=== PATIENT | female | born 1940 | race Caucasian/White ===

== ENCOUNTER → 2017-02-20 | Outpatient (CLI) | payer MEDICARE ==
--- NOTE | 2017-02-20 08:40 | MM ---
Reason for exam: screening (asymptomatic). Baseline mammogram. History: Patient is postmenopausal. Physical Findings: Nurse did not find any significant physical abnormalities on exam. MG 3D Screening Mammo W/Cad Bilateral CC and MLO view(s) were taken. There are scattered fibroglandular densities. There is no discrete abnormality. These results were verbally communicated with the patient and result sheet given to the patient on 02/20/17. ASSESSMENT: Negative, BI-RAD 1 RECOMMENDATION: Routine screening mammogram of both breasts in 1 year.
--- NOTE | 2017-02-20 15:52 | BD ---
EXAMINATION TYPE: MG DEXA axial skeleton. DATE OF EXAM: 02/20/2017 8:21 AM COMPARISON: NONE CLINICAL HISTORY: Z78.0 POST MENOPAUSAL SKELETON Height: 65.3 Weight: 193 FRAX RISK QUESTIONS: Alcohol (3 or more units per day): NO Family History (Parent hip fracture): NO Glucocorticoids (More than 3mos): NO (Ex: prednisone, prednisolone, methylprednisolone, dexamethasone, and hydrocortisone). History of Fracture in Adulthood: NO Secondary Osteoporosis: NO 1. Type 1 Diabetes: NO 2. Hyperthyroidism: NO 3. Menopause before 45: YES 4. Malnutrition: NO 5. Chronic liver disease: NO Rheumatoid Arthritis: NO Current Tobacco Use: NO RISK FACTORS HISTORY OF: Drink Alcohol: RARELY Active: YES, LATELY Diet low in dairy products/other sources of calcium: NO Postmenopausal woman: TOTAL HYST AT AGE 28 Take estrogen and/or progesterone medications: IN PAST ONLY FOR A SHORT TIME Adrenal Insufficiency: NO MEDICATIONS: Additional Medications: BP MEDS, MULTIVITAMIN, STATINS FOR CHOLESTEROL Additional History: EXAM MEASUREMENTS: Bone mineral densitometry was performed using the [employer] System. Bone mineral density as measured about the Lumbar spine is: ----- L1-L4(G/cm2): 1.119 T Score Values are as follows: ----- L1: -1.7 ----- L2: -1.2 ----- L3: 0.0 ----- L4: 0.3 ----- L1-L4: -0.5 Bone mineral density THIS IS HER FIRST BONE DENSITY.....BASELINE Bone mineral density about the R hip (g/cm2): 0.781 Bone mineral density about the L hip (g/cm2): 0.807 T Score values are as follows: -----R Neck: -1.6 -----L Neck: -1.9 -----R Total: -1.8 -----L Total: -1.6 Bone mineral density BASELINE STUDY FRAX %'S 14.0% CHANCE OF MAJOR OSTEOPOROTIC FX AND 3.7% CHANCE OF HIP FX....PROBABILITY OF FX IN 10 YRS TIME IMPRESSION: Osteopenia (T Score between -2.5 and -1 as noted by T score values There is slightly increased risk of fracture and the patient may be considered for treatment. Re-Screen 2-5 years. NOTE: T-SCORE=SD OF THE YOUNG ADULT MEAN.
== END | disposition home or self-care (01) ==
LOC: RADMAMWWP 06:56
PROVIDERS: ATTEND Internal Medicine
DX: Z12.31 Encounter for screening mammogram for malignant neoplasm of breast (principal); M85.80 Other specified disorders of bone density and structure, unspecified site; Z78.0 Asymptomatic menopausal state
CPT/HCPCS: 77080; 77063; G0202

== ENCOUNTER → 2019-03-15 | Outpatient (CLI) | payer MEDICARE ==
--- NOTE | 2019-03-15 19:56 | P.STRESS ---
- Stress Test Note Stress Test Results/Findings: Exam Performed: stress echo exercise Exam Date: 03/15/19 Reason for Exam: SOB, HTN Height: 5 ft 7 in Weight: 88.451 kg Protocol: STRESS ECHO Stage: 1 Duration of Exercise: 2:13 Resting Heart Rate: 79 Resting Blood Pressure: 145/69 Maximum Achieved Heart Rate: 129 Maximum Achieved Blood Pressure: 159/70 85% PMHR: 119 100% PMHR: 140 METS: 3.6 Technologist Comment: Stress Test Results/Findings: Baseline heart rate 79 beats a minute, Baseline blood pressure 145/69 mmHg Baseline 12-lead ECG shows sinus rhythm with a left bundle branch block pattern Patient exercised on a Ben protocol for only 2 minutes 13 seconds achieving a peak heart rate of 128 beats a minute normal blood pressure response to exercise. She was short of breath very quickly and TVCs and noted occasionally however with increasing heart rates there was normalization of QRS width and morphology intermittently and recovery left bundle branch block persisted Baseline creatinine condition normal LV systolic function without segmental wall motion abnormalities At peak exercise there was excellent augmentation of eeiu-yhn-[place] telemetry without any wall motion amenities @Recovery region only systolic function Normal Impression very low exercise capacity patient become short of breath very quickly Left bundle branch block morphology at baseline with normalization of QRS intermittently during exercise Occasional PVCs No evidence for stress-induced ischemia at this low workload level
--- NOTE | 2019-03-16 09:31 | ECHOS ---
Stress Test Results/Findings: Exam Performed: stress echo exercise Exam Date: 03/15/19 Reason for Exam: SOB, HTN Height: 5 ft 7 in Weight: 88.451 kg Protocol: STRESS ECHO Stage: 1 Duration of Exercise: 2:13 Resting Heart Rate: 79 Resting Blood Pressure: 145/69 Maximum Achieved Heart Rate: 129 Maximum Achieved Blood Pressure: 159/70 85% PMHR: 119 100% PMHR: 140 METS: 3.6 Technologist Comment: Stress Test Results/Findings: Baseline heart rate 79 beats a minute, Baseline blood pressure 145/69 mmHg Baseline 12-lead ECG shows sinus rhythm with a left bundle branch block pattern Patient exercised on a Ben protocol for only 2 minutes 13 seconds achieving a peak heart rate of 128 beats a minute normal blood pressure response to exercise. She was short of breath very quickly and TVCs and noted occasionally however with increasing heart rates there was normalization of QRS width and morphology intermittently and recovery left bundle branch block persisted Baseline creatinine condition normal LV systolic function without segmental wall motion abnormalities At peak exercise there was excellent augmentation of abne-sny-pgoyppd telemetry without any wall motion amenities @Recovery region only systolic function Normal Impression very low exercise capacity patient become short of breath very quickly Left bundle branch block morphology at baseline with normalization of QRS intermittently during exercise Occasional PVCs No evidence for stress-induced ischemia at this low workload level MTDD
== END | disposition home or self-care (01) ==
LOC: RADNMMAIN 08:46
PROVIDERS: ATTEND Internal Medicine
DX: I44.7 Left bundle-branch block, unspecified (principal); I10 Essential (primary) hypertension
CPT/HCPCS: 93351

== ENCOUNTER → 2020-03-02 | Outpatient (CLI) | payer MEDICARE | END | disposition home or self-care (01) | LOC: LABWHC1 10:04 | PROVIDERS: ATTEND Internal Medicine | DX: U07.1 COVID-19 (principal) | CPT/HCPCS: 36415; 86769 ==

== ENCOUNTER → 2020-08-02 | Outpatient (CLI) | payer MEDICARE ==
--- NOTE | 2020-08-02 09:03 | CT ---
EXAMINATION TYPE: CT chest wo con DATE OF EXAM: 08/02/2020 COMPARISON: None HISTORY: 79-year-old female Solitary pulmonary nodule TECHNIQUE: Contiguous axial scanning of the chest without IV contrast. Coronal and sagittal reconstru ctions performed. CT DLP: 269.4 mGycm Automated exposure control for dose reduction was used. FINDINGS: Heart normal size without pericardial effusion. Minimal LAD coronary calcifications are present. Ectatic ascending aorta 3.9 cm. Mild atherosclerotic arch calcifications with conventional arch vesse l branching anatomy. No thoracic lymphadenopathy by CT size criteria. There is a 1.3 cm pulmonary nodule medial right upper lobe, axial image 14. Tiny 3 mm peripheral right upper lobe pulmonary nodule, axial image 12. Biapical pleural parenchymal scarring. Some strandy scarring or atelectasis in the lower lungs. A 4.1 cm emphysematous cyst/pneumatocele at the left hilum. No consolidation or pleural effusion. Small hiatal hernia. Visualized upper abdomen otherwise shows a partially visualized 7.4 cm cyst of t he left kidney, cholecystectomy clips, and scattered hepatic cysts measuring up to 1.7 cm. There is an indeterminate soft tissue attenuating 1.1 cm lesion of the medial upper to mid pole of th e right kidney which warrants follow-up to exclude an early solid mass. Bones: Mild degenerative disc disease throughout. IMPRESSION: 1. A 1.3 CM RIGHT UPPER LOBE PULMONARY NODULE LOCATED ALONG THE POSTERIOR SEGMENTAL BRANCH OF THE RIG HT UPPER LOBE. APPROPRIATE WORKUP AND MANAGEMENT FOR POTENTIAL EARLY LUNG CANCER. 2. NONSPECIFIC 3 MM PERIPHERAL RIGHT UPPER LOBE PULMONARY NODULE. 3. A 4.1 CM EMPHYSEMATOUS CYST OR PNEUMATOCELE AT THE LEFT HILUM. 4. INDETERMINATE 1.1 CM LESION MEDIAL RIGHT KIDNEY COULD REPRESENT DECOMPENSATED CYST OR SMALL EARLY SOLID MASS. [address] MON[address] FOLLOW-UP CT RECOMMENDED TO REASSESS. A 3 MM RIGHT UPPER LOBE PULMONARY NODULE CA N ALSO BE REASSESSED AT THAT TIME.
== END | disposition home or self-care (01) ==
LOC: RADCTMAIN 06:25
PROVIDERS: ATTEND Internal Medicine
DX: R91.1 Solitary pulmonary nodule (principal)
CPT/HCPCS: 71250

== ENCOUNTER → 2020-08-10 | Outpatient (CLI) | payer MEDICARE ==
--- NOTE | 2020-08-11 17:49 | PE ---
EXAMINATION TYPE: PET CT fusion whole body DATE OF EXAM: 08/10/2020 COMPARISON: CT chest 08/02/2020 Prior PET/CT: None HISTORY: Solitary pulmonary nodule TECHNIQUE: Following the intravenous administration of 13.82 mCi of F-18 FDG, whole body images are performed from the skull base to the midthigh. Images are reviewed on the computer in the coronal, a xial, and sagittal planes. Reconstructed rotating images are created on independent workstation and reviewed on the computer. A localization and attenuation correction CT is performed in conjunction with the PET scan. SCAN: Initial Scan Blood glucose: 93 mg/dL Average Mediastinum SUV: 2.06 Average Liver SUV: 2.80 FINDINGS: NECK: No hypermetabolic activity. THORAX: Redemonstrated 12 x 13 mm round solid pulmonary nodule of the right upper lobe, which does no t demonstrate hypermetabolic activity. Redemonstrated 3 mm pulmonary nodule of the right upper lobe ( 3:60) which is below PET/CT threshold for assessment of metabolic activity. Biapical pleural thickeni ng. Redemonstrated emphysematous bulla at the left hilum. ABDOMEN/PELVIS: No hypermetabolic activity. OSSEOUS STRUCTURES: No hypermetabolic activity. LOCALIZATION CT: No thoracic or abdominal pelvic lymphadenopathy. Mucosal retention cyst versus polyp of the left maxillary sinus. Ectatic ascending thoracic aorta measures up to 3.8 cm. Enlarged pulmon eleni arterial trunk measures up to 3.5 cm and may represent pulmonary arterial hypertension. Small hia brittany hernia. Hepatic cystic lesions which demonstrate no metabolic activity. Status post cholecystecto my. There is a 1.0 cm exophytic indeterminate soft tissue lesion of the right renal upper pole redemo nstrated (3: 1:30) which does not demonstrate hypermetabolic activity. 7.3 cm simple cyst of the left kidney redemonstrated, also does not demonstrate hypermetabolic activity. Colonic diverticulosis. No acute diverticulitis. Degenerative changes of the spine. IMPRESSION: 1. Right upper lobe 13 mm pulmonary nodule demonstrates no metabolic activity. Recommend CT in 3-6 mo nths for stability. 2. Indeterminate 1.0 cm right renal lesion demonstrates no metabolic activity. Findings may represent hemorrhagic/proteinaceous cyst, although solid renal mass not entirely excluded. Right renal lesion can be reassessed with CT at time of pulmonary nodule follow-up.
== END | disposition home or self-care (01) ==
LOC: RADPETMAIN 15:25
PROVIDERS: ATTEND Internal Medicine
DX: R91.1 Solitary pulmonary nodule (principal)
CPT/HCPCS: 78816; A9552

== ENCOUNTER 2023-04-27 17:44 | Inpatient (IN) | payer MEDICARE ==
[2023-04-27] MEDS ORDERED: LIDOCAINE 1% INJ 10MG/ML (20 ML MDV) SQ ONE (18:00)
[2023-04-27 18:23] LABS: Basophils % (A) 0 %; Eosinophils # (A) 0.6 k/uL (0-0.7); Eosinophils % (A) 5 %; HCT 42.9 % (34.0-46.0); HGB 14.4 gm/dL (11.4-16.0); Lymphocytes # (A) 2.2 k/uL (1.0-4.8); Lymphocytes % (A) 21 %; MCH 29.7 pg (25.0-35.0); MCHC 33.5 g/dL (31.0-37.0); MCV 88.6 fL (80.0-100.0); Mean Platelet Volume 8.7; Monocytes # (A) 0.5 k/uL (0-1.0); Monocytes % (A) 5 %; Neutrophils % (A) 67 %; Platelet Count 274 k/uL (150-450); RBC 4.84 m/uL (3.80-5.40); WBC 10.5 k/uL (3.8-10.6)
[2023-04-27] MEDS ORDERED: ETOMIDATE 2 MG/ML 10 ML VIAL IV STA (18:24)
[2023-04-27 18:38] LABS: ALT 24 U/L (4-34); AST 30 U/L (14-36); African American GFR (CKD) 87 (>60 ml/min/1.73 sqM); Albumin 4.5 g/dL (3.5-5.0); Alkaline Phosphatase 123 U/L (38-126); Anion Gap 10 mmol/L; Blood Urea Nitrogen 20 mg/dL (7-17); Calcium 9.4 mg/dL (8.4-10.2); Carbon Dioxide 28 mmol/L (22-30); Chloride 102 mmol/L (98-107); Glucose 100 mg/dL (74-99); Non-African American GFR(CKD) 75 (>60 ml/min/1.73 sqM); Potassium 3.5 mmol/L (3.5-5.1); Sodium 140 mmol/L (137-145); Total Bilirubin 0.9 mg/dL (0.2-1.3); Total Protein 7.5 g/dL (6.3-8.2)
[2023-04-27] MEDS ORDERED: ETOMIDATE 2 MG/ML 10 ML VIAL IVP STA ×2 (19:11→19:19)
[2023-04-27] MEDS ORDERED: ONDANSETRON 4 MG/2 ML VIAL IVP STA (19:27)
[2023-04-27] MEDS ORDERED: HYDROmorphone 0.5 MG/0.5 ML SYRINGE IVP STA (19:28)
--- NOTE | 2023-04-27 20:18 | XR ---
EXAMINATION TYPE: XR chest 1V portable DATE OF EXAM: 04/27/2023 7:36 PM COMPARISON: Chest radiographs from earlier same day. TECHNIQUE: XR chest 1V portable Frontal view of the chest. CLINICAL INDICATION:Female, 82 years old with history of thoravent placement; FINDINGS: Lungs/Pleura: There is no evidence of pleural effusion, focal consolidation, or right pneumothorax . There is a small left pneumothorax. Pulmonary vascularity: Unremarkable. Heart/mediastinum: Cardiomediastinal silhouette is enlarged and stable. Musculoskeletal: No acute osseous pathology. Other findings: None Lines/Tubes: Interval left thoracotomy tube placement. Improved but persistent pneumothorax which is small now. IMPRESSION: Interval placement of left thoracotomy tube with persistent small pneumothorax.
[2023-04-27] MEDS ORDERED: METOCLOPRAMIDE 5 MG/ML 2 ML VIAL IVP STA (20:24)
[2023-04-27] MEDS ORDERED: diphenhydrAMINE 50 MG/ML 1 ML VIAL IVP STA (20:24)
--- NOTE | 2023-04-27 20:43 | ED ---
SOB HPI - General Chief Complaint: Shortness of Breath Stated Complaint: sob Time Seen by Provider: 04/27/23 17:56 Source: patient Mode of arrival: ambulatory Limitations: no limitations - History of Present Illness Initial Comments: 82-year-old female with past medical history of hypertension, hyperlipidemia who presents to the emergency department from Dr. Buckley's office. She states that she went into his office today after she has had some shortness of breath for the past 2 weeks. States that it has been progressive in nature. Admits that she had a restless night last night and this is what prompted her to call him for an appointment. He did see her in office and sent her for an outpatient x- ray. X-ray was performed and demonstrated a left-sided 40% pneumothorax. He did call the patient's send her into the ER. She denies history of COPD, emphysema. She has never smoked. Denies ever having any respiratory issues. She does admit to a fall landing with her arms underneath her however this was close to a month ago. States that she did have some chest wall pain after the fall however it had completely gone away. The patient does not take any blood thinners. No other alleviating, precipitating or modifying factors - Related Data Home Medications Medication Instructions Recorded Confirmed atenoloL [Tenormin] 25 mg PO HS 01/31/16 04/27/23 Albuterol Sulfate [Albuterol 2 puff INHALATION RT-Q4H PRN 04/27/23 04/27/23 Sulfate Hfa] Aspirin EC [Ecotrin Low Dose] 81 mg PO HS 04/27/23 04/27/23 Atorvastatin [Lipitor] 20 mg PO HS 04/27/23 04/27/23 Lisinopril-Hctz 10-12.5 mg 1 tab PO HS 04/27/23 04/27/23 [Zestoretic 10-12.5] Triamterene-Hctz 37.5-25Mg 1 tab PO DIRECTED 04/27/23 04/27/23 [Maxzide 37.5-25] Allergies Allergy/AdvReac Type Severity Reaction Status Date / Time No Known Allergies Allergy Verified 04/27/23 18:19 Review of Systems ROS Statement: Those systems with pertinent positive or pertinent negative responses have been documented in the HPI. ROS Other: All systems not noted in ROS Statement are negative. Past Medical History Past Medical History: Hyperlipidemia, Hypertension History of Any Multi-Drug Resistant Organisms: None Reported Past Surgical History: Adenoidectomy, Appendectomy, Cholecystectomy, Hysterectomy, Orthopedic Surgery, Tonsillectomy Past Psychological History: No Psychological Hx Reported Smoking Status: Never smoker Past Alcohol Use History: None Reported Past Drug Use History: None Reported General Exam Limitations: no limitations General appearance: alert, in no apparent distress Head exam: Present: atraumatic, normocephalic, normal inspection Eye exam: Present: normal appearance, PERRL, EOMI. Absent: scleral icterus, conjunctival injection, periorbital swelling ENT exam: Present: normal exam, mucous membranes moist Neck exam: Present: normal inspection. Absent: tenderness, meningismus, lymphadenopathy Respiratory exam: Present: decreased breath sounds (On the left at the apex). Absent: respiratory distress, wheezes, rales, rhonchi, stridor Cardiovascular Exam: Present: regular rate, normal rhythm, normal heart sounds. Absent: systolic murmur, diastolic murmur, rubs, gallop, clicks GI/Abdominal exam: Present: soft, normal bowel sounds. Absent: distended, tenderness, guarding, rebound, rigid Extremities exam: Present: normal inspection, full ROM, normal capillary refill. Absent: tenderness, pedal edema, joint swelling, calf tenderness Back exam: Present: normal inspection Neurological exam: Present: alert, oriented X3, CN II-XII intact Psychiatric exam: Present: normal affect, normal mood Skin exam: Present: warm, dry, intact, normal color. Absent: rash Course Vital Signs 04/27/23 04/27/23 04/27/23 17:46 19:00 19:05 Temperature 98.5 F Pulse Rate 97 92 84 Respiratory 18 16 22 Rate Blood Pressure 162/73 161/95 150/68 O2 Sat by Pulse 94 L 100 100 Oximetry 04/27/23 04/27/23 04/27/23 19:10 19:15 19:20 Temperature Pulse Rate 87 82 82 Respiratory 24 20 22 Rate Blood Pressure 190/91 180/106 187/94 O2 Sat by Pulse 100 100 100 Oximetry 04/27/23 04/27/23 04/27/23 19:25 19:30 19:45 Temperature Pulse Rate 75 77 63 Respiratory 20 24 14 Rate Blood Pressure 190/95 177/87 160/74 O2 Sat by Pulse 100 100 100 Oximetry 04/27/23 04/27/23 04/27/23 20:00 20:15 20:30 Temperature Pulse Rate 65 92 74 Respiratory 17 16 14 Rate Blood Pressure 144/69 134/86 161/74 O2 Sat by Pulse 92 L 98 93 L Oximetry 04/27/23 04/27/23 21:01 21:14 Temperature Pulse Rate 75 81 Respiratory 14 16 Rate Blood Pressure 148/65 149/74 O2 Sat by Pulse 95 95 Oximetry Procedures - Rinard Protocol (Time Out) Procedure Performed:: lt chest wall thoravent with moderate sedation Performing Provider: Pia Akhtar Nurse: Peggy Herbert Respiratory Therapist: Charu Jin Patient Identification (2 identifiers required): Arm Band, Name, Birthdate, Medical Record Number Patient/Legal Print Producer has Confirmed: Identity, Site, Procedure, Consent Site: L chest wall Site Verified With Patient/Guardian: Yes Final Confirmation: Procedure, Site, Confirmed w/Provider - Chest Tube Insertion Consent Obtained: written consent Side of Procedure: left Indication: Pneumothorax Placed on monitor/pulse oximetry: Yes Site Prep: Chloroprep Local Anesthesia: Lidocaine 1% Amount (mLs): 8 Insertion Site: Other (Second intercostal space, midclavicular line) Scalpel: #11 Open into Pleural Space Using: Trocar Tube Size (Iranian): Other (13 fr) Returns: Air Sutured in Place: No Attached to Suction: Yes Type of Suction: Pleuravac Repeat X-ray Results: Lung Inflated Patient Tolerated Procedure: well, no complications - Procedural Sedation *Procedural Sedation Start Time: 18:57 *Procedural Sedation Stop Time: 19:30 *Indications: other (Chest tube placement) *Previous Adverse Reaction to Anesthesia/Sedation?: No * Testing Complete?: No Reason Test Not Complete:: Age > 60 *ASA Class: II *Mallampati Airway Score: 2 *Time of Last PO Intake: 08:00 Preparation: shelter monitor applied, pulse oximeter, supplemental O2 applied, reversal agents at bedside, suction/airway equipment at bedside IV Etomidate Dose (mgs): 8 (Patient given 8 mg of etomidate 3) Complications: none Patient Tolerated Procedure: well, no complications Medical Decision Making - Medical Decision Making Was pt. sent in by a medical professional or institution (, PA, [employer], urgent care, hospital, or detention...) When possible be specific @ - Patient sent in by Dr. Buckley Did you speak to anyone other than the patient for history (EMS, parent, family, police, friend...)? What history was obtained from this source @ -I spoke with the patient's daughter Did you review nursing and triage notes (agree or disagree)? Why? @ -I reviewed and agree with nursing and triage notes Were old charts reviewed (outside hosp., previous admission, EMS record, old EKG, old radiological studies, urgent care reports/EKG's, detention records)? Report findings @ -I reviewed the patient's outpatient x-ray which was done earlier today Differential Diagnosis (chest pain, altered mental status, abdominal pain women, abdominal pain men, vaginal bleeding, weakness, fever, dyspnea, syncope, headache, dizziness, GI bleed, back pain, seizure, CVA, palpatations, mental health, musculoskeletal)? @ -Differential Dyspnea: Coronary syndrome, arrhythmia, tamponade, asthma, COPD, pulmonary embolism, pneumonia, pneumothorax, pulmonary effusion, anaphylaxis, diabetic ketoacidosis, flailed chest, pulmonary contusion, diaphragmatic rupture, anemia, neuromuscular, this is not meant to be an all-inclusive list. EKG interpreted by me (3pts min.). @ -Yes and demonstrates sinus rhythm with a rate of 90. NV interval 176. QRS 145. QTC of 465. Left bundle branch block. ST depression 2, 3, aVF. No ST segment elevation X-rays interpreted by me (1pt min.). @ -X-ray was performed after chest tube was placed, however before the tube was put to suction. Does demonstrate residual pneumothorax but correct placement of the catheter. Tube is placed to suction after this x-ray CT interpreted by me (1pt min.). @ -None done U/S interpreted by me (1pt. min.). @ -None done What testing was considered but not performed or refused? (CT, X-rays, U/S, labs)? Why? @ -None What meds were considered but not given or refused? Why? @ -None Did you discuss the management of the patient with other professionals (professionals i.e. , PA, [employer], lab, RT, psych nurse, social studies teacher, retail marketing coordinator, teacher, hydrographical technical officer, case briefer)? Give summary @ -I spoke with Dr. mckeon regards to the patient's admission Was smoking cessation discussed for >3mins.? @ -No Was critical care preformed (if so, how long)? @ -Yes, 35 minutes for treatment and management of chest tube Were there social determinants of health that impacted care today? How? (Homelessness, low income, unemployed, alcoholism, drug addiction, transportation, low edu. Level, literacy, decrease access to med. care, detention, rehab)? @ -No Was there de-escalation of care discussed even if they declined (Discuss DNR or withdrawal of care, Hospice)? DNR status @ -No What co-morbidities impacted this encounter? (DM, HTN, Smoking, COPD, CAD, Ca ncer, CVA, ARF, Chemo, Hep., AIDS, mental health diagnosis, sleep apnea, morbid obesity)? @ -None Was patient admitted / discharged? Hospital course, mention meds given and route, prescriptions, significant lab abnormalities, going to OR and other pertinent info. @ -On arrival patient was placed into trauma 1. A thorough history and physic al exam was performed. I did review the patient's outpatient x-ray which demonstrates a left-sided pneumothorax. Left-sided Thoravant was placed under conscious sedation as patient is extremely anxious. Chest x-ray was performed which demonstrated appropriate placement of the tube. The tube was then hooked to suction. Patient maintains adequate oxygen saturations of 95% and higher. Pain medications and nausea medications are ordered. Patient will be admitted for pulmonology to consult. Patient was agreeable to this plan she was taking to the floor in stable condition Undiagnosed new problem with uncertain prognosis? @ -Yes Drug Therapy requiring intensive monitoring for toxicity (Heparin, Nitro, Insulin, Cardizem)? @ -No Were any procedures done? @ -Left-sided Thoravent placement Diagnosis/symptom? @ -Acute respiratory insufficiency, acute spontaneous left-sided pneumothorax Acute, or Chronic, or Acute on Chronic? @ -Acute Uncomplicated (without systemic symptoms) or Complicated (systemic symptoms)? @ -Dictated Side effects of treatment? @ -No Exacerbation, Progression, or Severe Exacerbation? @ -No Poses a threat to life or bodily function? How? (Chest pain, [place], [place], pneumonia, PE, COPD, DKA, ARF, appy, cholecystitis, CVA, Diverticulitis, Homicidal, Suicidal, threat to staff... and all critical care pts) @ -Yes patient could have suffered from tension pneumothorax should her pneumothorax not have been addressed - Lab Data Result diagrams: 04/27/23 18:08 04/27/23 18:08 Lab Results 04/27/23 04/27/23 Range/Units 18:08 18:08 WBC 10.5 (3.8-10.6) k/uL RBC 4.84 (3.80-5.40) m/uL Hgb 14.4 (11.4-16.0) gm/dL Hct 42.9 (34.0-46.0) % MCV 88.6 (80.0-100.0) fL MCH 29.7 (25.0-35.0) pg MCHC 33.5 (31.0-37.0) g/dL RDW 13.0 (11.5-15.5) % Plt Count 274 (150-450) k/uL MPV 8.7 Neutrophils % 67 % Lymphocytes % 21 % Monocytes % 5 % Eosinophils % 5 % Basophils % 0 % Neutrophils # 7.0 (1.3-7.7) k/uL Lymphocytes # 2.2 (1.0-4.8) k/uL Monocytes # 0.5 (0-1.0) k/uL Eosinophils # 0.6 (0-0.7) k/uL Basophils # 0.0 (0-0.2) k/uL Sodium 140 (137-145) mmol/L Potassium 3.5 (3.5-5.1) mmol/L Chloride 102 (98-107) mmol/L Carbon Dioxide 28 (22-30) mmol/L Anion Gap 10 mmol/L BUN 20 H (7-17) mg/dL Creatinine 0.74 (0.52-1.04) mg/dL Est GFR (CKD-EPI)AfAm 87 (>60 ml/min/1.73 sqM) Est GFR (CKD-EPI)NonAf 75 (>60 ml/min/1.73 sqM) Glucose 100 H (74-99) mg/dL Calcium 9.4 (8.4-10.2) mg/dL Total Bilirubin 0.9 (0.2-1.3) mg/dL AST 30 (14-36) U/L ALT 24 (4-34) U/L Alkaline Phosphatase 123 (38-126) U/L Total Protein 7.5 (6.3-8.2) g/dL Albumin 4.5 (3.5-5.0) g/dL Disposition Clinical Impression: Acute respiratory insufficiency, Pneumothorax Disposition: ADMITTED IP TO THIS HOSP Condition: Stable Is patient prescribed a controlled substance at d/c from ED?: No Time of Disposition: 20:43 Decision to Admit Reason: Admit from EC Decision Date: 04/27/23 Decision Time: 20:43
[2023-04-27] MEDS ORDERED: HYDROmorphone 0.5 MG/0.5 ML SYRINGE IVP PRN (20:44)
[2023-04-27] MEDS ORDERED: ONDANSETRON 4 MG/2 ML VIAL IVP PRN (20:44)
[2023-04-27] MEDS ORDERED: NALOXONE 0.4 MG/ML 1 ML VIAL IV PRN (20:44)
[2023-04-27 21:56] LABS: Prothrombin Time 10.4 sec (9.0-12.0)
[2023-04-27 22:01] LABS: Partial Thromboplastin Time 21.3 sec (22.0-30.0)
[2023-04-27] MEDS ORDERED: LISINOPRIL-HCTZ 10-12.5 MG 1 EACH TAB PO SCH (22:15)
[2023-04-27] MEDS: ATORVASTATIN 20 MG TAB PO SCH (22:19)
[2023-04-27] MEDS: atenoloL 25 MG TAB PO SCH (22:19)
--- NOTE | 2023-04-28 01:31 | XR ---
EXAM: XR Chest, 1 View CLINICAL HISTORY: ITS.REASON XR Reason: post thoravent placement TECHNIQUE: Frontal view of the chest. COMPARISON: No relevant prior studies available. FINDINGS: Lungs: Right lung is clear. Pleural space: See below. Heart: Unremarkable. No cardiomegaly. Mediastinum: Unremarkable. Bones/joints: Unremarkable. Tubes, lines and devices: Left-sided chest drain present. Trace left pleural effusion with associated left lower lobe atelectasis. IMPRESSION: 1. Small left pleural effusion 2. Left sided chest drain
--- NOTE | 2023-04-28 03:13 | P.CNPUL ---
History of Present Illness Consult date: 04/28/23 Requesting physician: Pia Akhtar Reason for consult: pneumothorax Chief complaint: Shortness of breath History of present illness: I am seeing this patient in consultation today 04/28/2023 for acute left-sided pneumothorax status post Thora-Vent placement. Patient is a 82-year-old white female with past medical history significant for hypertension and hyperlipidemia. Patient has been experiencing progressively worsening shortness of breath over the last 2 weeks. Yesterday, she did see her primary care provider, Dr. Buckley, who sent her in for a chest x-ray which showed a left-sided 40% pneumothorax. The patient was then called back, and directed to the emergency room. The ER physician did place a left-sided ThoraVent, with adequate reduction of the pneumothorax to approximately less than 10%. She does recall falling in the driveway, after tripping over a garden hose, approximately 1-2 months ago. She did have some initial left-sided chest pain that eventually went away. No other trauma reported. She denies any history of COPD or emphysema. She is a never smoker. Denies ever having a pneumothorax in the past. She is not on any anticoagulants.. Patient is currently sitting up in bed, on room air, in no acute distress. ThoraVent is attached to [facility] with - 20 cm of H2O suction. Small intermittent air leak with coughing. CBC and BMP on arrival were both unremarkable. Pain appears well-managed. We will order this patient an incentive spirometer. She is hemodynamically stable. Review of Systems REVIEW OF SYSTEMS: CONSTITUTIONAL: Denies any recent significant weight loss or weight gain. EYES: Denies change in vision. EARS, NOSE, MOUTH, THROAT: Denies headaches, denies sore throat. CARDIOVASCULAR: Denies chest pain, palpitations or syncopal episodes. RESPIRATORY: Denies cough, congestion or hemoptysis. Admits progressive shortness of breath as described in HPI GASTROINTESTINAL: Denies change in appetite, abdominal pain, nausea and vomiting, or diarrhea GENITOURINARY: Denies hematuria, denies infections. MUSKULOSKELETAL: Denies pain, denies swelling. INTEGUMENTARY: Denies rash, denies eczema. NEUROLOGICAL: Denies recent memory loss, no recent seizure activity. PSYCHIATRIC: Denies anxiety, denies depression. HEMATOLOGIC/LYMPHATIC: Denies anemia, denies enlarged lymph node Past Medical History Past Medical History: Hyperlipidemia, Hypertension History of Any Multi-Drug Resistant Organisms: None Reported Past Surgical History: Adenoidectomy, Appendectomy, Cholecystectomy, Hysterectomy, Orthopedic Surgery, Tonsillectomy Past Psychological History: No Psychological Hx Reported Smoking Status: Never smoker Past Alcohol Use History: None Reported Past Drug Use History: None Reported Medications and Allergies Home Medications Medication Instructions Recorded Confirmed Type atenoloL [Tenormin] 25 mg PO HS 01/31/16 04/27/23 History Albuterol Sulfate [Albuterol 2 puff INHALATION RT-Q4H PRN 04/27/23 04/27/23 History Sulfate Hfa] Aspirin EC [Ecotrin Low Dose] 81 mg PO HS 04/27/23 04/27/23 History Atorvastatin [Lipitor] 20 mg PO HS 04/27/23 04/27/23 History Lisinopril-Hctz 10-12.5 mg 1 tab PO HS 04/27/23 04/27/23 History [Zestoretic 10-12.5] Triamterene-Hctz 37.5-25Mg 1 tab PO DIRECTED 04/27/23 04/27/23 History [Maxzide 37.5-25] Allergies Allergy/AdvReac Type Severity Reaction Status Date / Time No Known Allergies Allergy Verified 04/27/23 18:19 Physical Exam Vitals: Vital Signs Temp Pulse Pulse Resp BP BP Pulse Ox 04/28/23 00:00 78 16 130/71 90 L 04/27/23 21:36 97.9 F 76 16 117/68 94 L 04/27/23 21:14 81 16 149/74 95 04/27/23 21:01 75 14 148/65 95 04/27/23 20:30 74 14 161/74 93 L 04/27/23 20:15 92 16 134/86 98 04/27/23 20:00 65 17 144/69 92 L 04/27/23 19:45 63 14 160/74 100 04/27/23 19:30 77 24 177/87 100 04/27/23 19:25 75 20 190/95 100 04/27/23 19:20 82 22 187/94 100 04/27/23 19:15 82 20 180/106 100 04/27/23 19:10 87 24 190/91 100 04/27/23 19:05 84 22 150/68 100 04/27/23 19:00 92 16 161/95 100 04/27/23 17:46 98.5 F 97 18 162/73 94 L Intake and Output 04/27/23 04/27/23 04/28/23 14:59 22:59 06:59 Intake Total 540 Output Total 0 Balance 540 Intake: Oral 540 Output: Chest Tube Drainage 0 Thora-Vent Left Upper Mid 0 -Axillary Chest Other: Voiding Method Bedpan Bedpan Weight 86.183 kg GENERAL EXAM: Alert, 82-year-old white female appearing stated age , comfortable in no apparent distress. HEAD: Normocephalic and atraumatic EYES: Normal reaction of pupils, equal size. NOSE: Clear with pink turbinates. THROAT: No erythema or exudates. NECK: No masses, no JVD. CHEST: No chest wall deformity. No crepitus or evidence of subcutaneous emphysema. Left Thoravent is attached to suction at -20 cm H2O LUNGS: Equal air entry with no crackles, wheeze, rhonchi or dullness. On room air. No conversational dyspnea or accessory muscle use.. CVS: S1 and S2 normal with a soft grade 1 systolic ejection murmur, regular rhythm. No extra heart sounds ABDOMEN: No hepatosplenomegaly, active bowel sounds, no guarding or rigidity. SPINE: No scoliosis or deformity SKIN: No rashes CENTRAL NERVOUS SYSTEM: No focal deficits, tone is normal in all 4 extremities. EXTREMITIES: There is no peripheral edema, clubbing, or cyanosis. Peripheral pulses are intact. Results - Laboratory Findings CBC and BMP: 04/27/23 18:08 04/27/23 18:08 PT/INR, D-dimer PT 10.4 sec (9.0-12.0) 04/27/23 21:20 INR 1.0 (<1.2) 04/27/23 21:20 Abnormal lab findings: Abnormal Labs 04/27/23 04/27/23 18:08 21:20 APTT 21.3 L BUN 20 H Glucose 100 H - Diagnostic Findings Chest x-ray: image reviewed Assessment and Plan Assessment: Acute left-sided pneumothorax, possibly traumatic, status post insertion of a left chest Thoravent with adequate reduction of the left-sided pneumothorax to less than 10%. History of fall Benign essential hypertension Hyperlipidemia Plan: Patient's medications, labs, chest x-ray reviewed On room air Continue ThoraVent to suction Small intermittent air leak with coughing, no subcutaneous emphysema Pain appears well-managed with current regimen Encourage incentive spirometer We will continue to follow I have personally seen and examined the patient, performed the documentation and the assessment and plan as written. Number of minutes spent on the visit:20 Time with Patient: Greater than 30
[2023-04-28 08:08] VITALS: RESP 18
[2023-04-28] MEDS: ACETAMINOPHEN TAB 325 MG TAB PO PRN ×2 (09:42→20:30)
[2023-04-28 10:08] LABS: Basophils # (A) 0.1 k/uL (0-0.2); Basophils % (A) 1 %; Eosinophils # (A) 0.3 k/uL (0-0.7); Eosinophils % (A) 3 %; HCT 40.2 % (34.0-46.0); HGB 13.4 gm/dL (11.4-16.0); Lymphocytes # (A) 1.1 k/uL (1.0-4.8); Lymphocytes % (A) 11 %; MCH 29.7 pg (25.0-35.0); MCHC 33.2 g/dL (31.0-37.0); MCV 89.4 fL (80.0-100.0); Mean Platelet Volume 9.3; Monocytes # (A) 0.6 k/uL (0-1.0); Monocytes % (A) 5 %; Neutrophils # (A) 7.9 k/uL (1.3-7.7); Neutrophils % (A) 79 %; Platelet Count 226 k/uL (150-450); RDW 13.2 % (11.5-15.5); WBC 10.1 k/uL (3.8-10.6)
[2023-04-28 10:19] LABS: African American GFR (CKD) 56 (>60 ml/min/1.73 sqM); Anion Gap 9 mmol/L; Blood Urea Nitrogen 24 mg/dL (7-17); Calcium 8.7 mg/dL (8.4-10.2); Carbon Dioxide 27 mmol/L (22-30); Chloride 101 mmol/L (98-107); Glucose 118 mg/dL (74-99); Non-African American GFR(CKD) 49 (>60 ml/min/1.73 sqM); Potassium 3.9 mmol/L (3.5-5.1); Sodium 137 mmol/L (137-145)
--- NOTE | 2023-04-28 11:48 | P.HPIM ---
History of Present Illness Patient is admitted with worsening shortness of breath found to have left-sided 40% pneumothorax after which patient received left-sided for underwent with reduction of pneumothorax to 10%. Patient did fall in her driveway after tri pping or garden hose approximately one to 2 months ago denied any history of COPD or emphysema never smoked. Patient is comparing of soreness but doesn't have any chest pain, shortness of breath resolved REVIEW OF SYSTEMS: CONSTITUTIONAL: No fever, no malaise, no fatigue. HEENT: No recent visual problems or hearing problems. Denied any sore throat. CARDIOVASCULAR: No chest pain, orthopnea, PND, no palpitations, no syncope. PULMONARY: No shortness of breath, no cough, no hemoptysis. GASTROINTESTINAL: No diarrhea, no nausea, no vomiting, no abdominal pain. NEUROLOGICAL: No headaches, no weakness, no numbness. HEMATOLOGICAL: Denies any bleeding or petechiae. GENITOURINARY: Denies any burning micturition, frequency, or urgency. MUSCULOSKELETAL/RHEUMATOLOGICAL: Denies any joint pain, swelling, or any muscle pain. ENDOCRINE: Denies any polyuria or polydipsia. The rest of the 14-point review of systems is negative. PHYSICAL EXAMINATION: GENERAL: The patient is alert and oriented x3, not in any acute distress. Well developed, well nourished. HEENT: Pupils are round and equally reacting to light. EOMI. No scleral icterus. No conjunctival pallor. Normocephalic, atraumatic. No pharyngeal erythema. No thyromegaly. CARDIOVASCULAR: S1 and S2 present. No murmurs, rubs, or gallops. PULMONARY: Chest is clear to auscultation, no wheezing or crackles. ABDOMEN: Soft, nontender, nondistended, normoactive bowel sounds. No palpable organomegaly. MUSCULOSKELETAL: No joint swelling or deformity. EXTREMITIES: No cyanosis, clubbing, or pedal edema. NEUROLOGICAL: Gross neurological examination did not reveal any focal deficits. SKIN: No rashes. Assessment and plan -Left sided pneumothorax: Possibly traumatic, continue with thoravent, monitor with repeat chest x-ray tomorrow. -Essential hypertension: Patient blood pressure is low because of which I'm holding off on antidepressant medications low blood pressure is probably due to anesthetic she received for the Thoravent placement. -Mild acute renal failure: Secondary to hypotension hold off on lisinopril and hydrochlorothiazide, will be started on IV fluids -hyperlipidemia DVT prophylaxis: Subcutaneous Lovenox Past Medical History Past Medical History: Hyperlipidemia, Hypertension History of Any Multi-Drug Resistant Organisms: None Reported Past Surgical History: Adenoidectomy, Appendectomy, Cholecystectomy, Hystere ctomy, Orthopedic Surgery, Tonsillectomy Past Psychological History: No Psychological Hx Reported Smoking Status: Never smoker Past Alcohol Use History: None Reported Past Drug Use History: None Reported Medications and Allergies Home Medications Medication Instructions Recorded Confirmed Type atenoloL [Tenormin] 25 mg PO HS 01/31/16 04/27/23 History Albuterol Sulfate [Albuterol 2 puff INHALATION RT-Q4H PRN 04/27/23 04/27/23 History Sulfate Hfa] Aspirin EC [Ecotrin Low Dose] 81 mg PO HS 04/27/23 04/27/23 History Atorvastatin [Lipitor] 20 mg PO HS 04/27/23 04/27/23 History Lisinopril-Hctz 10-12.5 mg 1 tab PO HS 04/27/23 04/27/23 History [Zestoretic 10-12.5] Triamterene-Hctz 37.5-25Mg 1 tab PO DIRECTED 04/27/23 04/27/23 History [Maxzide 37.5-25] Allergies Allergy/AdvReac Type Severity Reaction Status Date / Time No Known Allergies Allergy Verified 04/27/23 18:19 Physical Exam Vitals: Vital Signs Temp Pulse Pulse Resp BP BP Pulse Ox 04/28/23 11:24 64 18 104/56 93 L 04/28/23 08:06 98.4 F 72 18 96/52 93 L 04/28/23 04:00 67 16 86/52 96 04/28/23 00:00 78 16 130/71 90 L 04/27/23 21:36 97.9 F 76 16 117/68 94 L 04/27/23 21:14 81 16 149/74 95 04/27/23 21:01 75 14 148/65 95 04/27/23 20:30 74 14 161/74 93 L 04/27/23 20:15 92 16 134/86 98 04/27/23 20:00 65 17 144/69 92 L 04/27/23 19:45 63 14 160/74 100 04/27/23 19:30 77 24 177/87 100 04/27/23 19:25 75 20 190/95 100 04/27/23 19:20 82 22 187/94 100 04/27/23 19:15 82 20 180/106 04/27/23 19:10 87 24 190/91 04/27/23 19:05 84 22 150/68 04/27/23 19:00 92 16 161/95 100 04/27/23 17:46 98.5 F 97 18 162/73 94 L Intake and Output 04/27/23 04/28/23 04/28/23 22:59 06:59 14:59 Intake Total 540 0 370 Output Total 0 Balance 540 0 370 Intake: IV 10 Invasive Line 1 10 Oral 540 0 360 Output: Chest Tube Drainage 0 Thora-Vent Left Upper Mid 0 -Axillary Chest Other: Voiding Method Bedpan Bedpan Bedpan # Voids 1 Weight 86.183 kg Results CBC & Chem 7: 04/28/23 08:38 04/28/23 08:38 Labs: Abnormal Lab Results - Last 24 Hours (Table) 04/27/23 04/27/23 04/28/23 Range/Units 18:08 21:20 08:38 Neutrophils # 7.9 H (1.3-7.7) k/uL APTT 21.3 L (22.0-30.0) sec BUN 20 H (7-17) mg/dL Creatinine (0.52-1.04) mg/dL Glucose 100 H (74-99) mg/dL 04/28/23 Range/Units 08:38 Neutrophils # (1.3-7.7) k/uL APTT (22.0-30.0) sec BUN 24 H (7-17) mg/dL Creatinine 1.05 H (0.52-1.04) mg/dL Glucose 118 H (74-99) mg/dL
[2023-04-28] MEDS: atenoloL 25 MG TAB PO SCH (20:30)
[2023-04-28] MEDS: ATORVASTATIN 20 MG TAB PO SCH (20:30)
[2023-04-28] MEDS: ASPIRIN 81 MG PO SCH (20:30)
--- NOTE | 2023-04-29 08:21 | XR ---
EXAMINATION TYPE: XR chest 1V portable DATE OF EXAM: 04/29/2023 Comparison: 04/28/2023 Clinical History: 82-year-old female Pneumothorax Findings: Left-sided Thora vent catheter in place. Some subcutaneous emphysema along the left chest wall has in creased in the interval. Similar 1.0 cm small left apical pneumothorax versus 1.2 cm, previously. Aubrey e hazy density throughout the left lung remain similar. Some patchy opacity previously seen at the le ft base shows slight improvement. No sizable pleural effusion. Impression: 1. Left-sided Thora vent catheter in place. The small 1.0 cm left apical pneumothorax is relatively u nchanged. Some subcutaneous emphysema on the left has developed in the interval. 2. Similar hazy left lung densities could represent some mild pulmonary vascular congestion, contusio n, generalized atelectasis, or a pneumonitis
--- NOTE | 2023-04-29 11:36 | XR ---
EXAMINATION TYPE: XR chest 1V portable DATE OF EXAM: 04/29/2023 11:11 AM COMPARISON: Chest radiographs from same day TECHNIQUE: XR chest 1V portable Frontal view of the chest. CLINICAL INDICATION:Female, 82 years old with history of Pneumothorax; FINDINGS: Lungs/Pleura: There is no evidence of pleural effusion, focal consolidation, or pneumothorax. Pulmonary vascularity: Unremarkable. Heart/mediastinum: Cardiomediastinal silhouette is unremarkable. Musculoskeletal: No acute osseous pathology. Other findings: None Lines/Tubes: Left thoracotomy tube is present without evidence of pneumothorax. IMPRESSION: Left thoracotomy tube, prior pneumothorax not definitively visualized.
--- NOTE | 2023-04-29 11:43 | P.PN ---
Subjective Progress Note Date: 04/29/23 Principal diagnosis: Shortness of breath. I am seeing this patient in consultation today 04/28/2023 for acute left-sided pneumothorax status post Thora-Vent placement. Patient is a 82-year-old white female with past medical history significant for hypertension and hyperlipidemi a. Patient has been experiencing progressively worsening shortness of breath over the last 2 weeks. Yesterday, she did see her primary care provider, Dr. Buckley, who sent her in for a chest x-ray which showed a left-sided 40% pneumothorax. The patient was then called back, and directed to the emergency room. The ER physician did place a left-sided ThoraVent, with adequate reduction of the pneumothorax to approximately less than 10%. She does recall falling in the driveway, after tripping over a garden hose, approximately 1-2 months ago. She did have some initial left-sided chest pain that eventually went away. No other trauma reported. She denies any history of COPD or emphysema. She is a never smoker. Denies ever having a pneumothorax in the past. She is not on any anticoagulants.. Patient is currently sitting up in bed, on room air, in no acute distress. ThoraVent is attached to [facility] with - 20 cm of H2O suction. Small intermittent air leak with coughing. CBC and BMP on arrival were both unremarkable. Pain appears well-managed. We will order this patient an incentive spirometer. She is hemodynamically stable. Progress note dated 04/29/2023. This is a patient was seen in consultation yesterday. She was admitted with a left-sided pneumothorax, and had a Thora-vent placed. The patient continues on suction, and there is no air leak, with either deep breathing, or coughing. She has a history of hypertension and hyperlipidemia. The Thora-vent was taken off suction, and subsequent chest x-ray will be ordered. No new laboratory data today other than an N-terminal proBNP of 604. The follow-up chest x-ray, shows the Thora-vent to be in place, without any evidence of pneumothorax. Objective - Vital Signs Vital signs: Vital Signs Temp 98.4 F 04/29/23 08:19 Pulse 64 04/29/23 08:19 Resp 18 04/29/23 08:19 BP 127/73 04/29/23 08:19 Pulse Ox 97 04/29/23 08:19 FiO2 Intake & Output 04/28/23 04/29/23 04/29/23 18:59 06:59 18:59 Intake Total 1400 1090 118 Balance 1400 1090 118 Intake: IV 20 10 Invasive Line 1 20 10 Oral [id number] Other: Voiding Method Toilet Toilet Toilet # Voids 1 1 - Exam No acute distress, oriented 3. Currently on room air. HEENT examination is grossly unremarkable. Mucous membranes are moist. No oral lesions. Neck supple. Full range of motion. No adenopathy thyromegaly or neck vein distention. Cardiovascular examination reveals regular rhythm rate. S1-S2 normal. No S3 or S4. No discernible murmur noted. Heart rate 64 bpm. Lungs reveal clear breath sounds. Breath sounds are equal bilaterally. No adventitious lung sounds including wheezes rhonchi or crackles. Room air saturation is 97%. Thora-vent is noted in the left chest. Abdomen soft bowel sounds are heard. No masses or tenderness. Extremities are intact. No cyanosis clubbing or edema. Skin is without rash or lesion. Neurologic examination is brief but nonfocal. - Labs CBC & Chem 7: 04/28/23 08:38 04/28/23 08:38 Assessment and Plan Assessment: Acute left-sided pneumothorax, possibly traumatic, status post insertion of a left chest Thora-vent with adequate reduction of the left-sided pneumothorax to less than 10%. History of fall. Benign essential hypertension. Hyperlipidemia. Plan: Plan dated 04/29/2023. The patient appears to be doing relatively well. She's not receiving any IV fluids, or supplemental oxygen. There appears to be no air leak, on the left side, hyperlipidemia breathing, or coughing. The Thora-vent is taken off of suction. A subsequent portable chest x-ray will be done. Likely it will be removed the next day or so. Additional recommendations and suggestions are forthcoming. Time with Patient: Less than 30
--- NOTE | 2023-04-29 19:09 | P.PN ---
Subjective Progress Note Date: 04/29/23 Patient is admitted with worsening shortness of breath found to have left-sided 40% pneumothorax after which patient received left-sided for underwent with reduction of pneumothorax to 10%. Patient did fall in her driveway after tripping or garden hose approximately one to 2 months ago denied any history of COPD or emphysema never smoked. Patient is comparing of soreness but doesn't have any chest pain, shortness of breath resolved 04/29/2023 Patient is evaluated today sitting up in bed family at the bedside. Reports improvement in shortness of breath. Pain is management. Chest xray today shows 1.0 cm left apical pneumothorax with some SQ emphysema on the left has developed in the interval. The pneumothorax remains unchanged. There is similar hazy left lung density that could represent some mild pulmonary vascular congestion, contusion, generalized atelectasis or pneumonitis. Patient is using incentive spirometer at the bedside. Thoravent remains in place and has been taken off suction and a follow up chest xray is pending at this time. REVIEW OF SYSTEMS: CONSTITUTIONAL: No fever, no malaise, no fatigue. HEENT: No recent visual problems or hearing problems. Denied any sore throat. CARDIOVASCULAR: No chest pain, orthopnea, PND, no palpitations, no syncope. PULMONARY: No shortness of breath, no cough, no hemoptysis. GASTROINTESTINAL: No diarrhea, no nausea, no vomiting, no abdominal pain. NEUROLOGICAL: No headaches, no weakness, no numbness. PHYSICAL EXAMINATION: GENERAL: The patient is alert and oriented x3, not in any acute distress. Well developed, well nourished. HEENT: Pupils are round and equally reacting to light. EOMI. No scleral icterus. No conjunctival pallor. Normocephalic, atraumatic. No pharyngeal erythema. No thyromegaly. CARDIOVASCULAR: S1 and S2 present. No murmurs, rubs, or gallops. PULMONARY: Chest is clear to auscultation, no wheezing or crackles. ABDOMEN: Soft, nontender, nondistended, normoactive bowel sounds. No palpable organomegaly. MUSCULOSKELETAL: No joint swelling or deformity. EXTREMITIES: No cyanosis, clubbing, or pedal edema. NEUROLOGICAL: Gross neurological examination did not reveal any focal deficits. SKIN: No rashes. Assessment and plan -Left sided pneumothorax: Possibly traumatic, continue with thoravent off slater ction, monitor with repeat chest x-ray tomorrow. -Essential hypertension: Patient blood pressure normalized and remains off blood pressure medication at this time -Mild acute renal failure: patient was hydrated and f/u labs in AM -hyperlipidemia DVT prophylaxis: Subcutaneous Lovenox GI prophylaxis: Full Code The impression and plan of care has been dictated by Catia Anton, Nurse Practitioner as directed. Dr. Joseph MD I have performed a history and physical examination and medical decision making of this patient, discussed the same with the dictator, and agree with the dictators assessment and plan as written, documented as a scribe. Based on total visit time, I have performed more than 50% of this visit. Objective - Vital Signs Vital signs: Vital Signs Temp 97.8 F 04/29/23 16:33 Pulse 79 04/29/23 16:33 Resp 18 04/29/23 16:33 BP 124/72 04/29/23 16:33 Pulse Ox 97 04/29/23 16:33 FiO2 Intake & Output 04/28/23 04/29/23 04/29/23 18:59 06:59 18:59 Intake Total 1400 1090 354 Balance 1400 1090 354 Intake: IV 20 10 Invasive Line 1 20 10 Oral [id number] Other: Voiding Method Toilet Toilet Toilet # Voids 1 1 2 # Bowel Movements 1 - Labs CBC & Chem 7: 04/28/23 08:38 04/28/23 08:38 Assessment and Plan Time with Patient: Less than 30
[2023-04-29] MEDS: ATORVASTATIN 20 MG TAB PO SCH (20:31)
[2023-04-29] MEDS: atenoloL 25 MG TAB PO SCH (20:31)
[2023-04-29] MEDS: ASPIRIN 81 MG PO SCH (20:31)
[2023-04-29] MEDS ORDERED: FAMOTIDINE 20 MG TAB PO SCH (21:00)
[2023-04-30 07:54] VITALS: TEMP 97
[2023-04-30] MEDS ORDERED: ENOXAPARIN 40 MG/0.4 ML SYRINGE SQ SCH (09:00)
--- NOTE | 2023-04-30 10:17 | XR ---
EXAMINATION TYPE: XR chest 1V portable DATE OF EXAM: 04/30/2023 8:17 AM COMPARISON: Chest radiographs from 04/29/2023 TECHNIQUE: XR chest 1V portable Frontal view of the chest. CLINICAL INDICATION:Female, 82 years old with history of Pneumo; FINDINGS: Lungs/Pleura: There is no evidence of pleural effusion, focal consolidation, or pneumothorax. Pulmonary vascularity: Unremarkable. Heart/mediastinum: Cardiomediastinal silhouette is unremarkable. Musculoskeletal: No acute osseous pathology. Other findings: None Lines/Tubes: Left thoracotomy tube is present without evidence of pneumothorax. IMPRESSION: Left thoracotomy tube, prior pneumothorax not definitively visualized.
[2023-04-30 10:45] LABS: African American GFR (CKD) >90 (>60 ml/min/1.73 sqM); Anion Gap 5 mmol/L; Blood Urea Nitrogen 21 mg/dL (7-17); Calcium 8.9 mg/dL (8.4-10.2); Carbon Dioxide 28 mmol/L (22-30); Chloride 106 mmol/L (98-107); Glucose 106 mg/dL (74-99); Non-African American GFR(CKD) 81 (>60 ml/min/1.73 sqM); Potassium 3.9 mmol/L (3.5-5.1); Sodium 139 mmol/L (137-145)
--- NOTE | 2023-04-30 11:06 | P.PN ---
Subjective Progress Note Date: 04/30/23 Principal diagnosis: Shortness of breath. I am seeing this patient in consultation today 04/28/2023 for acute left-sided pneumothorax status post Thora-Vent placement. Patient is a 82-year-old white female with past medical history significant for hypertension and hyperlipidemi a. Patient has been experiencing progressively worsening shortness of breath over the last 2 weeks. Yesterday, she did see her primary care provider, Dr. Buckley, who sent her in for a chest x-ray which showed a left-sided 40% pneumothorax. The patient was then called back, and directed to the emergency room. The ER physician did place a left-sided ThoraVent, with adequate reduction of the pneumothorax to approximately less than 10%. She does recall falling in the driveway, after tripping over a garden hose, approximately 1-2 months ago. She did have some initial left-sided chest pain that eventually went away. No other trauma reported. She denies any history of COPD or emphysema. She is a never smoker. Denies ever having a pneumothorax in the past. She is not on any anticoagulants.. Patient is currently sitting up in bed, on room air, in no acute distress. ThoraVent is attached to [facility] with - 20 cm of H2O suction. Small intermittent air leak with coughing. CBC and BMP on arrival were both unremarkable. Pain appears well-managed. We will order this patient an incentive spirometer. She is hemodynamically stable. Progress note dated 04/29/2023. This is a patient was seen in consultation yesterday. She was admitted with a left-sided pneumothorax, and had a Thora-vent placed. The patient continues on suction, and there is no air leak, with either deep breathing, or coughing. She has a history of hypertension and hyperlipidemia. The Thora-vent was taken off suction, and subsequent chest x-ray will be ordered. No new laboratory data today other than an N-terminal proBNP of 604. The follow-up chest x-ray, shows the Thora-vent to be in place, without any evidence of pneumothorax. Progress note dated 04/30/2023. 82-year-old female with a left-sided pneumothorax. The patient's doing relatively well. She's on room air. She is seen today in room 350. Yesterday, the device was taken off suction, and the follow-up x-ray, did not reveal a pneumothorax. This morning's chest x-ray likewise, did not reveal a pneumothorax, so, the plan was to remove the Thora-vent. It was normal, without any difficulty, and a follow-up chest x-ray was ordered. If everything looks okay, the patient could be considered for discharge. Sodium 139, potassium 3.9, chlorides 106, CO2 28, anion gap 5, BUN 21, and creatinine 0.68. The official report of radiology, from the chest x-ray this morning, did not reveal a pneumothorax. Objective - Vital Signs Vital signs: Vital Signs Temp 97 F L 04/30/23 07:53 Pulse 74 04/30/23 07:53 Resp 18 04/30/23 07:53 BP 135/74 04/30/23 07:53 Pulse Ox 96 04/30/23 07:53 FiO2 Intake & Output 04/29/23 04/30/23 04/30/23 18:59 06:59 18:59 Intake Total 354 10 Balance 354 10 Intake: IV 10 Invasive Line 1 10 Oral 354 Other: Voiding Method Toilet Toilet Toilet # Voids 2 1 # Bowel Movements 1 - Exam No acute distress, oriented 3. Currently on room air. HEENT examination is grossly unremarkable. Mucous membranes are moist. No oral lesions. Neck supple. Full range of motion. No adenopathy thyromegaly or neck vein distention. Cardiovascular examination reveals regular rhythm rate. S1-S2 normal. No S3 or S4. No discernible murmur noted. Heart rate 74 bpm. Lungs reveal clear breath sounds. Breath sounds are equal bilaterally. No adventitious lung sounds including wheezes rhonchi or crackles. Room air satura tion is 96 %. Thora-vent is noted in the left chest. Abdomen soft bowel sounds are heard. No masses or tenderness. Extremities are intact. No cyanosis clubbing or edema. Skin is without rash or lesion. Neurologic examination is brief but nonfocal. - Labs CBC & Chem 7: 04/28/23 08:38 04/30/23 09:15 Labs: Abnormal Lab Results - Last 24 Hours (Table) 04/30/23 Range/Units 09:15 BUN 21 H (7-17) mg/dL Glucose 106 H (74-99) mg/dL Assessment and Plan Assessment: Acute left-sided pneumothorax, possibly traumatic, status post insertion of a left chest Thora-vent with adequate reduction of the left-sided pneumothorax to less than 10%. History of fall. Benign essential hypertension. Hyperlipidemia. Plan: Plan dated 04/29/2023. The patient appears to be doing relatively well. She's not receiving any IV fluids, or supplemental oxygen. There appears to be no air leak, on the left side, hyperlipidemia breathing, or coughing. The Thora-vent is taken off of suction. A subsequent portable chest x-ray will be done. Likely it will be removed the next day or so. Additional recommendations and suggestions are forthcoming. Plan dated 04/30/2023. This morning's chest x-ray, did not reveal any pneumothorax. The Thora-vent, was off suction. The device was removed this morning, and a bandage placed over the area. A follow-up chest x-ray was ordered about an hour after the device was removed. If everything looks okay, and there is no pneumothorax, the patient could be considered for discharge. She will follow-up in the office with me. I told her to keep the area dry, for about a day or so. No additional recommendations are made. Time with Patient: Less than 30
[2023-04-30 11:45] VITALS: BP 134/72; PULSE 64
--- NOTE | 2023-04-30 14:06 | XR ---
EXAMINATION TYPE: XR chest 2V DATE OF EXAM: 04/30/2023 10:49 AM COMPARISON: Chest radiographs from 04/30/2023. TECHNIQUE: XR chest 2V Frontal and lateral views of the chest. CLINICAL INDICATION:Female, 82 years old with history of Pneumothorax, Thoravent removal; FINDINGS: Lungs/Pleura: Trace left pneumothorax. There is no evidence of pleural effusion, focal consolidation, or right pneumothorax. Pulmonary vascularity: Unremarkable. Heart/mediastinum: Cardiomediastinal silhouette is unremarkable. Musculoskeletal: No acute osseous pathology. Removal left thoracotomy tube. IMPRESSION: Interval removal left lower with a trace pneumothorax visualized.
--- NOTE | 2023-04-30 14:55 | CDI ---
Documentation Clarification Form Date: 04/30/2023 02:25:31 PM From: Ly Silva RN, CCDS Admit Date: 04/28/2023 12:56:00 PM Patient Name: Sherita Seay Visit Number: [id number] Discharge Date: ATTENTION: The Clinical Documentation Specialists (CDI) and [facility] Coding Staff appreciate your assistance in clarifying documentation. Please respond to the clarification below the line at the bottom and electronically sign. The CDI & [facility] Coding staff will review the response and follow-up if needed. Please note: Queries are made part of the Legal Health Record. If you have any questions, please contact the author of this message via ITS. Dr. Shun Menjivar Subcutaneous emphysema on the left has developed in the interval is documented in the progress note on and patient had a left Thora-Vent insertion on 04/27 for pneumothorax. Additional clarification is requested regarding the relationship, if any, that exists between the diagnosis and the procedure. Patients Admitting Diagnosis: Left-sided pneumothorax. Post-Operative Diagnosis: Same Procedure performed: Left Thora-Vent insertion. History/Risk Factors: Hyperlipidemia, Hypertension Clinical Indicators: The patient was sent to the hospital for a chest x-ray which revealed a left pneumothorax. A Thora vent was placed by the ER physician. 04/29 VS 127/73 64 18 98.4 97% RA 04/29 CXR: Left-sided Thora vent catheter in place. The small 1.0 cm left apical pneumothorax is relatively unchanged. Some subcutaneous emphysema on the left has developed in the interval. Treatment: Cardiac/Telemetry monitoring Chest x-ray daily per orders Monitor O2 Sats Encourage incentive spirometer. What relationship, if any, exists between the diagnosis of subcutaneous emphysema and the procedure: [ ] Subcutaneous emphysema is a complication of surgical procedure. [ ] Subcutaneous emphysema is an expected outcome of the surgical procedure. [ ] Subcutaneous emphysema not clinically significant, not a complication. [ ] Other please specify ____ [ x ] Unable to determine (Template Last Revised: December 2020) MTDD
--- NOTE | 2023-05-01 23:16 | P.DS ---
Providers Date of admission: 04/28/23 12:56 Attending physician: Ronni Tom MD Consults: 04/27/23 20:44 Consult Physician Urgent Consulting Provider: Shun Menjivar Consult Reason/Comments: left pneumothorax s/p chest tube placement Do you want consulting provider notified?: Yes Primary care physician: Magdi Marcio [place] [facility] Course: Final Diagnosis -Left sided pneumothorax: likely traumatic due to recent mechanical fall while out in garden. Resolved. -Essential hypertension: Patient blood pressure normalized and remains off blood pressure medication at this time -Mild acute renal failure: patient was hydrated -hyperlipidemia Full Code Discharge Disposition Patient is stable for discharge home. Recommending to see pulmonary in the office in 1 to 2 weeks for follow up. Continue with incentive spirometer 10 x an hour while awake. Patient to hold blood pressure medication on discharge blood pressure is normal. Hospital Course This is an 82 year old female with history of hyperlipidemia, hypertension. Had fallen at home a few months ago it was a mechanical fall. Patient is admitted with worsening shortness of breath found to have left-sided 40% pneumothorax after which patient received left-sided thoravent and pneumothorax was reduced to 10%. Patient did fall in her driveway after tripping or garden hose approximately one to 2 months ago, reports she had placed her hands up in fists to protect face from landing and that is what impacted her chest on impact. denied any history of COPD or emphysema never smoked. Patient is comparing of soreness but doesn't have any chest pain, shortness of breath resolved. Patient was admitted to medicine and pulmonary services followed the patient. She was taken off suction and repeat chest xray shows resolution of thoravent and it was removed prior to discharge. Patient is utilizing incentive spirometer and will continue on discharge. Patient had mild JAVON which has resolved with gentle hydration, creatinine down to 0.68. Patient has maintained oxygen saturation on room air. Currently denying chest pain, no shortness of breath alert x 3. Lungs are clear, patient will be discharged home. Please see medication reconciliation for a list of current medication. Thank you for allowing us to participate in the care of this patient. The impression and plan of care has been dictated by Nurse Dwain Pr actitioner as directed. Dr. Joseph MD I have performed a history and physical examination and medical decision making of this patient, discussed the same with the dictator, and agree with the dicta tors assessment and plan as written, documented as a scribe. Based on total visit time, I have performed more than 50% of this visit. Patient Condition at Discharge: Stable Plan - Discharge Summary Discharge Rx Participant: Yes New Discharge Prescriptions: New Famotidine [Pepcid] 20 mg PO HS #30 tab Continue atenoloL [Tenormin] 25 mg PO HS Aspirin EC [Ecotrin Low Dose] 81 mg PO HS Albuterol Sulfate [Albuterol Sulfate Hfa] 2 puff INHALATION RT-Q4H PRN PRN Reason: Shortness Of Breath Lisinopril-Hctz 10-12.5 mg [Zestoretic 10-12.5] 1 tab PO HS Atorvastatin [Lipitor] 20 mg PO HS Discontinued Triamterene-Hctz 37.5-25Mg [Maxzide 37.5-25] 1 tab PO DIRECTED Discharge Medication List atenoloL [Tenormin] 25 mg PO HS 01/31/16 [History] Albuterol Sulfate [Albuterol Sulfate Hfa] 2 puff INHALATION RT-Q4H PRN 04/27/23 [History] Aspirin EC [Ecotrin Low Dose] 81 mg PO HS 04/27/23 [History] Atorvastatin [Lipitor] 20 mg PO HS 04/27/23 [History] Lisinopril-Hctz 10-12.5 mg [Zestoretic 10-12.5] 1 tab PO HS 04/27/23 [History] Famotidine [Pepcid] 20 mg PO HS #30 tab 04/30/23 [Rx] Follow up Appointment(s)/Referral(s): Magdi Buckley MD [Primary Care Provider] - 05/04/23 1:15 pm Shun Menjivar DO [Doctor of Osteopathic Medicine] - 06/02/23 10:00 am Patient Instructions/Handouts: Traumatic Pneumothorax (GEN) Activity/Diet/Wound Care/Special Instructions: Continue to use incentive spirometer 10 x an hour while awake Follow up with PCP in 1 to 2 days Follow up with pulmonary as needed Hold blood pressure medication at home keep log for follow up with Dr Buckley Discharge Disposition: HOME SELF-CARE
== END 2023-04-30 15:30 | disposition home or self-care (01) | DRG 200 ==
LOC: EC 17:44 → 3SCARD 20:47 → OBSVTOIN 04-28 12:56 → 3SCARD 04-29 20:21
PROVIDERS: ADMIT Internal Medicine; ATTEND Internal Medicine
PROC: 0W9B30Z Drainage of Left Pleural Cavity with Drainage Device, Percutaneous Approach (ICD-10-PCS; principal; 2023-04-27)
DX: S27.0XXA Traumatic pneumothorax, initial encounter (principal); J94.8 Other specified pleural conditions; N17.9 Acute kidney failure, unspecified; I95.2 Hypotension due to drugs; I10 Essential (primary) hypertension; T41.45XA Adverse effect of unspecified anesthetic, initial encounter; E78.5 Hyperlipidemia, unspecified; I44.7 Left bundle-branch block, unspecified; W01.0XXA Fall on same level from slipping, tripping and stumbling without subsequent striking against object, initial encounter; Y92.007 Garden or yard of unspecified non-institutional (private) residence as the place of occurrence of the external cause; Z79.899 Other long term (current) drug therapy; Z79.82 Long term (current) use of aspirin; Z91.81 History of falling
CPT/HCPCS: 32551; 36415; 71045; 71046; 80048; 80053; 83880; 85025; 85610; 85730; 93005; 96374; 96375; 99152; 99153; 99291

== ENCOUNTER 2023-09-01 00:06 | Emergency (ER) | payer MEDICARE ==
--- NOTE | 2023-09-01 00:55 | ED ---
Arrhythmia/Palpitations HPI - General Chief Complaint: Arrhythmia/Palpitations Stated Complaint: Palpitations Time Seen by Provider: 09/01/23 00:23 Source: patient, EMS Mode of arrival: EMS Limitations: no limitations - History of Present Illness Initial Comments: Sherita is a pleasant 82-year-old female presents to the ER today for evaluation of her heartbeat. Patient reports she was asleep on her watch begin alarming that her heart rate was elevated at [place]edar quite nervous she used her pulse ox and did note that her heart rate was elevated to the 150s. She didn't have any significant chest pain palpitations or shortness of breath. Patient reports she's never had this a before. She has no history of A. fib. Upon EMS arrival her vital signs normalized and have been normal here in the ER. - Related Data Home Medications Medication Instructions Recorded Confirmed atenoloL [Tenormin] 25 mg PO HS 01/31/16 04/27/23 Albuterol Sulfate [Albuterol 2 puff INHALATION RT-Q4H PRN 04/27/23 04/27/23 Sulfate Hfa] Aspirin EC [Ecotrin Low Dose] 81 mg PO HS 04/27/23 04/27/23 Atorvastatin [Lipitor] 20 mg PO HS 04/27/23 04/27/23 Lisinopril-Hctz 10-12.5 mg 1 tab PO HS 04/27/23 04/27/23 [Zestoretic 10-12.5] Previous Rx's Medication Instructions Recorded Famotidine [Pepcid] 20 mg PO HS #30 tab 04/30/23 Allergies Allergy/AdvReac Type Severity Reaction Status Date / Time No Known Allergies Allergy Verified 04/27/23 18:19 Review of Systems ROS Statement: Those systems with pertinent positive or pertinent negative responses have been documented in the HPI. ROS Other: All systems not noted in ROS Statement are negative. Past Medical History Past Medical History: Hyperlipidemia, Hypertension History of Any Multi-Drug Resistant Organisms: None Reported Past Surgical History: Adenoidectomy, Appendectomy, Cholecystectomy, Hysterectomy, Orthopedic Surgery, Tonsillectomy Past Psychological History: No Psychological Hx Reported Smoking Status: Never smoker Past Alcohol Use History: None Reported Past Drug Use History: None Reported General Exam - General Exam Comments Initial Comments: Physical Exam GENERAL: Patient is well-developed and well-nourished. Patient is nontoxic and well- hydrated and is in no distress. HENT: Normocephalic, Atraumatic. EYES: PERRL, EOMI PULMONARY: Unlabored respirations. No audible rales rhonchi or wheezing was noted. CARDIOVASCULAR: There is a regular rate and rhythm without any murmurs gallops or rubs. ABDOMEN: Soft and nontender with normal bowel sounds. SKIN: Skin is clear with no lesions or rashes and otherwise unremarkable. : Deferred NEUROLOGIC: Patient is alert and oriented x3. Moving all extremities spontaneously MUSCULOSKELETAL: Normal extremities with adequate strength and full range of motion. No lower extremity swelling or edema. No calf tenderness. PSYCHIATRIC: Normal psychiatric evaluation. Limitations: no limitations Course Vital Signs 09/01/23 09/01/23 09/01/23 00:09 01:44 02:15 Temperature 97.6 F 98.6 F Pulse Rate 80 81 87 Respiratory 20 18 18 Rate Blood Pressure 141/74 126/70 129/66 O2 Sat by Pulse 96 94 L 96 Oximetry EKG Findings - EKG Comments: EKG Findings:: EKG was obtained due to report of palpitations and tachycardia, EKG obtained at 12:27 AM, rate is sinus with a first-degree AV block, there is a left bundle, [place] is prolonged to 23, QRS 137, QTC is [address] elevations or depressions no evidence of ischemia or infarction. Medical Decision Making - Medical Decision Making Was pt. sent in by a medical professional or institution (, PA, ASSISTANCE SPECIALIST, urgent care, hospital, or skilled nursing...) When possible be specific @ -No Did you speak to anyone other than the patient for history (EMS, parent, family, police, friend...)? What history was obtained from this source @ -No Did you review nursing and triage notes (agree or disagree)? Why? @ -I reviewed and agree with nursing and triage notes Were old charts reviewed (outside hosp., previous admission, EMS record, old EKG, old radiological studies, urgent care reports/EKG's, skilled nursing records)? Report findings @ -No old charts were reviewed Differential Diagnosis (chest pain, altered mental status, abdominal pain women, abdominal pain men, vaginal bleeding, weakness, fever, dyspnea, syncope, headache, dizziness, GI bleed, back pain, seizure, CVA, palpatations, mental health)? @ -not applicable EKG interpreted by me (3pts min.). @ -As above X-rays interpreted by me (1pt min.). @ -None done CT interpreted by me (1pt min.). @ -None done U/S interpreted by me (1pt. min.). @ -None done What testing was considered but not performed or refused? (CT, X-rays, U/S, labs)? Why? @ -None What meds were considered but not given or refused? Why? @ -None Did you discuss the management of the patient with other professionals (professionals i.e. , PA, ASSISTANCE SPECIALIST, lab, RT, psych nurse, social studies teacher, quoter, teacher, senior escrow officer, case liner)? Give summary @ -No Was smoking cessation discussed for >3mins.? @ -No Was critical care preformed (if so, how long)? @ -No Were there social determinants of health that impacted care today? How? (Homelessness, low income, unemployed, alcoholism, drug addiction, transportation, low edu. Level, literacy, decrease access to med. care, nursing home, rehab)? @ -No Was there de-escalation of care discussed even if they declined (Discuss DNR or withdrawal of care, Hospice)? DNR status @ -No What co-morbidities impacted this encounter? (DM, HTN, Smoking, COPD, CAD, Cancer, CVA, ARF, Chemo, Hep., AIDS, mental health diagnosis, sleep apnea, morbid obesity)? @ -None Was patient admitted / discharged? Hospital course, mention meds given and route, prescriptions, significant lab abnormalities, going to OR and other p ertinent info. @ Discharge Patient was seen and evaluated history is obtained from the patient. Patient reported to watch alerted for tachycardia. Upon review of the health after the patient's phone it looks that she's been having frequent episodes of tachycardia but has never been alerted for this in the past. Patient denies having any symptoms. looking the date it looks sick babies happened during sleep, discussed with the patient and her daughter bedside perhaps this is because the watch is not reading appropriately while she is laying on it. I A showed the patient how to perform a 3-lead EKG with her watch and advised that if she hears subtle arm again she should perform an EKG. I also advised she needs to follow with her primary care provider for a Holter monitor for closer accurate cardiac monitoring. Patient was adamant about being discharged home doesn't want to be admitted this time, she's had no arrhythmias here in the ER her labs are unremarkable patient stable for discharge home. Undiagnosed new problem with uncertain prognosis? @ -No Drug Therapy requiring intensive monitoring for toxicity (Heparin, Nitro, Insulin, Cardizem)? @ -No Were any procedures done? @ -No Diagnosis/symptom? @ Tachycardia Acute, or Chronic, or Acute on Chronic? @ -default Uncomplicated (without systemic symptoms) or Complicated (systemic symptoms)? @ -default Side effects of treatment? @ -No Exacerbation, Progression, or Severe Exacerbation? @ -No Poses a threat to life or bodily function? How? (Chest pain, [place], [place], pneumonia, PE, COPD, DKA, ARF, appy, cholecystitis, CVA, Diverticulitis, Homicidal, Suicidal, threat to staff... and all critical care pts) @ -No - Lab Data Result diagrams: 09/01/23 01:05 09/01/23 01:05 Lab Results 09/01/23 09/01/23 09/01/23 Range/Units 01:05 01:05 01:05 WBC 8.4 (3.8-10.6) k/uL RBC 4.41 (3.80-5.40) m/uL Hgb 13.0 (11.4-16.0) gm/dL Hct 38.2 (34.0-46.0) % MCV 86.7 (80.0-100.0) fL MCH 29.5 (25.0-35.0) pg MCHC 34.0 (31.0-37.0) g/dL RDW 13.3 (11.5-15.5) % Plt Count 222 (150-450) k/uL MPV 8.6 Neutrophils % 71 % Lymphocytes % 18 % Monocytes % 5 % Eosinophils % 4 % Basophils % 0 % Neutrophils # 6.0 (1.3-7.7) k/uL Lymphocytes # 1.5 (1.0-4.8) k/uL Monocytes # 0.4 (0-1.0) k/uL Eosinophils # 0.3 (0-0.7) k/uL Basophils # 0.0 (0-0.2) k/uL PT 10.1 (10.0-12.5) sec INR 0.9 (<1.2) APTT 23.4 (22.0-30.0) sec Sodium 139 (137-145) mmol/L Potassium 4.0 (3.5-5.1) mmol/L Chloride 106 (98-107) mmol/L Carbon Dioxide 24 (22-30) mmol/L Anion Gap 9 mmol/L BUN 29 H (7-17) mg/dL Creatinine 0.74 (0.52-1.04) mg/dL Est GFR (CKD-EPI)AfAm 87 (>60 ml/min/1.73 sqM) Est GFR (CKD-EPI)NonAf 75 (>60 ml/min/1.73 sqM) Glucose 117 H (74-99) mg/dL Calcium 8.9 (8.4-10.2) mg/dL Magnesium 2.0 (1.6-2.3) mg/dL Total Bilirubin 0.3 (0.2-1.3) mg/dL AST 29 (14-36) U/L ALT 30 (4-34) U/L Alkaline Phosphatase 114 (38-126) U/L Troponin I (0.000-0.034) ng/mL NT-Pro-B Natriuret Pep 605 pg/mL Total Protein 5.9 L (6.3-8.2) g/dL Albumin 3.6 (3.5-5.0) g/dL TSH 4.250 (0.465-4.680) mIU/L 09/01/23 Range/Units 01:05 WBC (3.8-10.6) k/uL RBC (3.80-5.40) m/uL Hgb (11.4-16.0) gm/dL Hct (34.0-46.0) % MCV (80.0-100.0) fL MCH (25.0-35.0) pg MCHC (31.0-37.0) g/dL RDW (11.5-15.5) % Plt Count (150-450) k/uL MPV Neutrophils % % Lymphocytes % % Monocytes % % Eosinophils % % Basophils % % Neutrophils # (1.3-7.7) k/uL Lymphocytes # (1.0-4.8) k/uL Monocytes # (0-1.0) k/uL Eosinophils # (0-0.7) k/uL Basophils # (0-0.2) k/uL PT (10.0-12.5) sec INR (<1.2) APTT (22.0-30.0) sec Sodium (137-145) mmol/L Potassium (3.5-5.1) mmol/L Chloride (98-107) mmol/L Carbon Dioxide (22-30) mmol/L Anion Gap mmol/L BUN (7-17) mg/dL Creatinine (0.52-1.04) mg/dL Est GFR (CKD-EPI)AfAm (>60 ml/min/1.73 sqM) Est GFR (CKD-EPI)NonAf (>60 ml/min/1.73 sqM) Glucose (74-99) mg/dL Calcium (8.4-10.2) mg/dL Magnesium (1.6-2.3) mg/dL Total Bilirubin (0.2-1.3) mg/dL AST (14-36) U/L ALT (4-34) U/L Alkaline Phosphatase (38-126) U/L Troponin I <0.012 (0.000-0.034) ng/mL NT-Pro-B Natriuret Pep pg/mL Total Protein (6.3-8.2) g/dL Albumin (3.5-5.0) g/dL TSH (0.465-4.680) mIU/L Disposition Clinical Impression: Tachycardia Disposition: HOME SELF-CARE Condition: Stable Additional Instructions: As discussed. Follow with her primary care provider and discuss getting a Holter monitor to monitor your heart rate for a few days duration to see if it is truly elevating and if so what the rate and rhythm is. He needs to call 911 or return to the emergency department immediately if you have any chest pain, feeling her heart is racing or year lightheaded short of breath or feel like he going to pass out. If you watch alerts that you are having a high heart rate, and try to perform the EKG on the watch as this data will be saved in her phone and can be shared with your physicians Is patient prescribed a controlled substance at d/c from ED?: No Referrals: Magdi Buckley MD [Primary Care Provider] - 1-2 days
[2023-09-01 01:29] LABS: Basophils % (A) 0 %; Eosinophils # (A) 0.3 k/uL (0-0.7); Eosinophils % (A) 4 %; HCT 38.2 % (34.0-46.0); Lymphocytes # (A) 1.5 k/uL (1.0-4.8); Lymphocytes % (A) 18 %; MCH 29.5 pg (25.0-35.0); MCV 86.7 fL (80.0-100.0); Mean Platelet Volume 8.6; Monocytes # (A) 0.4 k/uL (0-1.0); Monocytes % (A) 5 %; Neutrophils % (A) 71 %; Platelet Count 222 k/uL (150-450); RBC 4.41 m/uL (3.80-5.40); RDW 13.3 % (11.5-15.5); WBC 8.4 k/uL (3.8-10.6)
[2023-09-01 01:35] LABS: ALT 30 U/L (4-34); AST 29 U/L (14-36); African American GFR (CKD) 87 (>60 ml/min/1.73 sqM); Albumin 3.6 g/dL (3.5-5.0); Alkaline Phosphatase 114 U/L (38-126); Anion Gap 9 mmol/L; Blood Urea Nitrogen 29 mg/dL (7-17); Calcium 8.9 mg/dL (8.4-10.2); Carbon Dioxide 24 mmol/L (22-30); Chloride 106 mmol/L (98-107); Glucose 117 mg/dL (74-99); Non-African American GFR(CKD) 75 (>60 ml/min/1.73 sqM); Sodium 139 mmol/L (137-145); Total Bilirubin 0.3 mg/dL (0.2-1.3); Total Protein 5.9 g/dL (6.3-8.2)
[2023-09-01 01:43] LABS: NT-Pro-B-Type Natriuretic Pept 605 pg/mL
[2023-09-01 01:44] LABS: INR 0.9 (<1.2); Partial Thromboplastin Time 23.4 sec (22.0-30.0); Prothrombin Time 10.1 sec (10.0-12.5)
--- NOTE | 2023-09-01 01:49 | XR ---
EXAM: XR Chest, 2 Views CLINICAL HISTORY: Chest Pain TECHNIQUE: Frontal and lateral views of the chest. COMPARISON: Chest 2 views dated 04/30/2023 FINDINGS: Lungs: The lungs are stable in appearance without definite focal airspace consolidation. The pulmonary vasculature demonstrates no significant radiographic abnormality. Pleural space: Unremarkable. No pneumothorax. No large pleural effusion. Heart: Unremarkable. No cardiomegaly. Mediastinum: The mediastinal contours are stable. The trachea is midline. Bones/joints: Unremarkable. No acute fracture. IMPRESSION: No acute cardiopulmonary process or significant alteration from the previous examination.
[2023-09-01 02:00] VITALS: RESP 18
[2023-09-01 02:27] VITALS: BP 129/66; PULSE 87; TEMP 98.6
== END 2023-09-01 02:15 | disposition home or self-care (01) ==
LOC: EC 00:06
DX: I44.7 Left bundle-branch block, unspecified (principal); E78.5 Hyperlipidemia, unspecified; I10 Essential (primary) hypertension; Z79.899 Other long term (current) drug therapy; Z79.82 Long term (current) use of aspirin
CPT/HCPCS: 36415; 71046; 80053; 83735; 83880; 84443; 84484; 85025; 85610; 85730; 93005; 99285

== ENCOUNTER → 2023-09-10 | Outpatient (CLI) | payer MEDICARE ==
--- NOTE | 2023-09-14 19:26 | MM ---
Reason for Exam: Screening (asymptomatic). Last mammogram was performed 6 year(s) and 7 month(s) ago. Patient History: Menarche at age 10. First Full-Term at age 19. Hysterectomy at age 33. Postmenopausal. Risk Values: Cristel 5 year model risk: 1.3%. NCI Lifetime model risk: 1.4%. Prior Study Comparison: 02/20/2017 Bilateral Screening Mammogram, [facility]. Tissue Density: There are scattered fibroglandular densities. Findings: Analyzed By CAD. Asymmetric density in the subareolar left MLO view remains unchanged. There is no suspicious group of microcalcifications or new suspicious mass in either breast. Overall Assessment: Benign, BI-RAD 2 Management: Screening Mammogram of both breasts in 1 year. . Patient should continue monthly self-breast exams. A clinical breast exam by your physician is recommended on an annual basis. This exam should not preclude additional follow-up of suspicious palpable abnormalities. Note on Cristel scores and lifetime risk: 1. A Cristel score greater than 3% is considered moderate risk. If this is the case, consider specialist referral to assess eligibility for a risk reducing agent. 2. If overall lifetime risk for the development of breast cancer is 20% or higher, the patient may qualify for future screening with alternating mammogram and breast MRI. Electronically signed and approved by: Raudel Crabtree M.D. Radiologist
== END | disposition home or self-care (01) ==
LOC: RADMAMWWP 15:54
PROVIDERS: ATTEND Internal Medicine Geriatric Medicine
DX: Z12.31 Encounter for screening mammogram for malignant neoplasm of breast (principal); M81.0 Age-related osteoporosis without current pathological fracture; Z78.0 Asymptomatic menopausal state
CPT/HCPCS: 77063; 77067

== ENCOUNTER → 2023-09-14 | Outpatient (CLI) | payer MEDICARE ==
--- NOTE | 2023-09-15 11:58 | CA ---
Transthoracic Echo Report Name: Sherita Seay Age: 82 Gender: F : 1940 Exam Date: 09/14/2023 14:47 Exam Location: [facility] Ht (in): 67 Wt (lb): 195 Ordering Physician: Magdi Buckley MD Attending/Referring Phys: Lindsey Youngblood PAC Vaccinator Danuta Townsend RDCS Procedure CPT: Indications: I35.0 nonrheumatic aortic valve stenosis Cardiac Hx: Technical Quality: Fair Contrast 1: Total Dose (mL): Contrast 2: Total Dose (mL): MEASUREMENTS (Male / Female) Normal Values 2D ECHO LV Diastolic Diameter PLAX 3.4 cm 4.2 - 5.9 / 3.9 - 5.3 cm LV Systolic Diameter PLAX 2.6 cm IVS Diastolic Thickness 1.4 cm 0.6 - 1.0 / 0.6 - 0.9 cm LVPW Diastolic Thickness 1.3 cm 0.6 - 1.0 / 0.6 - 0.9 cm LV Relative Wall Thickness 0.8 RV Internal Dim ED PLAX 4.2 cm LVOT Diameter 2.0 cm LA Volume 72.0 cm??? 18 - 58 / 22 - 52 cm??? LA Volume Index 34.8 cm???/m??? 16 - 28 cm???/m??? M-MODE Aortic Root Diameter MM 3.1 cm LA Systolic Diameter MM 3.3 cm LA Ao Ratio MM 1.0 DOPPLER AV Peak Velocity 209.9 cm/s AV Peak Gradient 17.6 mmHg AV Mean Velocity 156.7 cm/s AV Mean Gradient 10.7 mmHg AV Velocity Time Integral 41.8 cm LVOT Peak Velocity 220.1 cm/s LVOT Peak Gradient 19.4 mmHg LVOT Velocity Time Integral 41.2 cm LVOT Stroke Volume 130.8 cm??? LVOT Stroke Volume Index 65.4 ml/m??? AV Area Cont Eq vti 3.1 cm??? AV Area Cont Eq pk 3.3 cm??? MV Area PHT 4.6 cm??? Mitral E Point Velocity 84.2 cm/s Mitral A Point Velocity 114.7 cm/s Mitral E to A Ratio 0.7 MV Deceleration Time 166.5 ms MV E' Velocity 5.9 cm/s Mitral E to MV E' Ratio 14.4 TR Peak Velocity 243.1 cm/s TR Peak Gradient 23.6 mmHg FINDINGS Left Ventricle Moderately increased left ventricular wall thickness. Left ventricular cavity size normal. Normal left ventricular systolic function with no obvious regional wall motion abnormalities. Left ventricular ejection fraction is estimated at 55-60 %. Right Ventricle Moderate right ventricular dilatation. Right ventricular systolic pressure within normal limits. Right Atrium Normal right atrial size. Left Atrium Moderately increased left atrial volume. Mitral Valve Structurally normal mitral valve. Mild mitral annular calcification. Mild-to- moderate mitral regurgitation. Aortic Valve Trileaflet aortic valve. No aortic regurgitation. Mild aortic stenosis with a peak gradient of 18 mmHg and a mean gradient of 11 mmHg. Tricuspid Valve Structurally normal tricuspid valve. Mild tricuspid regurgitation. Pulmonic Valve Structurally normal pulmonic valve. Pericardium No pericardial effusion. Aorta Normal size aortic root and proximal ascending aorta. CONCLUSIONS Left ventricular ejection fraction is estimated at 55-60 %. No obvious regional wall motion abnormalities. Moderate LVH [id number] MR Calcific aortic valve with mild aortic stenosis RVSP estimated around 25 mmHg Previewed by: Dr Hong Painter (Electronically Signed) Final Date: 15 September 2023 11:57
== END | disposition home or self-care (01) ==
LOC: RADECHMAIN 13:46
PROVIDERS: ATTEND Internal Medicine Geriatric Medicine
DX: I35.0 Nonrheumatic aortic (valve) stenosis (principal)
CPT/HCPCS: 93306

== ENCOUNTER → 2023-09-25 | Outpatient (CLI) | payer MEDICARE ==
--- NOTE | 2023-09-25 19:48 | BD ---
EXAMINATION TYPE: Axial Bone Density DATE OF EXAM: 09/25/2023 CLINICAL HISTORY: 82 years old Female. ICD-10 CODE: M81.0 AGE-RELATED OSTEOPOROSIS W/O CURRENT PATHO LO Height: 65 Weight: 193.4 FRAX RISK QUESTIONS: Alcohol (3 or more units per day): no Family History (Parent hip fracture): no Glucocorticoids (More than 3mos): no History of Fracture in Adulthood: no Secondary Osteoporosis: 1. Type 1 Diabetes: no 2. Hyperthyroidism: no 3. Menopause before 45: no 4. Malnutrition: no 5. Chronic liver disease: no Rheumatoid Arthritis: no Current Tobacco Use: no RISK FACTORS HISTORY OF: Hip Fracture (Right/Left): no Spine Fracture: no History of Wrist Fracture: Surgery to Spine/Hip(right/left)/Wrist (right/left): no Family History of Osteoporosis: no Active: yes Diet low in dairy products/other sources of calcium: no Postmenopausal woman: yes Take estrogen and/or progesterone medications: no Lost more than 2 inches in height since high school: yes Frequent falls: no Poor Health: no Hyperparathyroidism: no Adrenal Insufficiency: no MEDICATIONS: Prednisone or other steroids: no Osteoporosis Medications:no Additional Medications: BP Meds, Cholesterol Meds, Magnesium, Multi Vit., Vit D Additional History: EXAM MEASUREMENTS: Bone mineral densitometry was performed using the [employer] System. Bone mineral density as measured about the Lumbar spine is: ----- L1-L4(G/cm2): 1.128 T Score Values are as follows: ----- L1: -1.3 ----- L2: -0.7 ----- L3: 0.8 ----- L4: -0.7 ----- L1-L4: -0.4 Z Score Values are as follows: ----- L1: -0.1 ----- L2: 0.5 ----- L3: 2.0 ----- L4: 0.5 ----- L1-L4: 0.7 Bone mineral density has: increased 0.8 % since study of: 02/20/2017 Bone mineral density about the R hip (g/cm2): 0.796 Bone mineral density about the L hip (g/cm2): 0.839 T Score values are as follows: -----R Neck: -1.8 -----L Neck: -1.2 -----R Total: -1.7 -----L Total: -1.3 Z Score values are as follows: -----R Neck: 0.1 -----L Neck: 0.7 -----R Total: 0.0 -----L Total: 0.4 Bone mineral density has: INCREASED 3.0 % since study of: 02/20/2017 FRAX%s: The graph provided illustrates a 14.4% chance for a major osteoporotic fx and a 4.1% chance f or the hips probability for fx in 10 years time. IMPRESSION: Osteopenia (T Score between -2.5 and -1). There is slightly increased risk of fracture and the patient may be considered for treatment. Re-Screen 2-5 years. NOTE: T-SCORE=SD OF THE YOUNG ADULT MEAN.
== END | disposition home or self-care (01) ==
LOC: RADBDWWP 13:42
PROVIDERS: ATTEND Internal Medicine Geriatric Medicine
DX: M81.0 Age-related osteoporosis without current pathological fracture (principal); M85.89 Other specified disorders of bone density and structure, multiple sites
CPT/HCPCS: 77080

== ENCOUNTER 2024-02-14 20:03 | Inpatient (IN) | payer MEDICARE ==
[2024-02-14 20:38] LABS: Basophils # (A) 0.1 k/uL (0-0.2); Basophils % (A) 1 %; Eosinophils # (A) 0.3 k/uL (0-0.7); Eosinophils % (A) 4 %; HCT 41.3 % (34.0-46.0); HGB 13.7 gm/dL (11.4-16.0); Lymphocytes # (A) 1.7 k/uL (1.0-4.8); Lymphocytes % (A) 20 %; MCH 28.9 pg (25.0-35.0); MCHC 33.1 g/dL (31.0-37.0); MCV 87.2 fL (80.0-100.0); Mean Platelet Volume 9.2; Monocytes # (A) 0.5 k/uL (0-1.0); Monocytes % (A) 5 %; Neutrophils % (A) 69 %; Platelet Count 258 k/uL (150-450); RBC 4.74 m/uL (3.80-5.40); RDW 13.4 % (11.5-15.5); WBC 8.8 k/uL (3.8-10.6)
[2024-02-14 20:49] LABS: ALT 20 U/L (4-34); Blood Urea Nitrogen 26 mg/dL (7-17); Total Bilirubin 0.7 mg/dL (0.2-1.3)
[2024-02-14 20:53] LABS: INR 0.9 (<1.2); Partial Thromboplastin Time 22.7 sec (22.0-30.0)
--- NOTE | 2024-02-14 21:20 | ED ---
Arrhythmia/Palpitations HPI - General Chief Complaint: Arrhythmia/Palpitations Stated Complaint: Tachycardia Time Seen by Provider: 02/14/24 20:30 Source: patient Mode of arrival: ambulatory Limitations: no limitations - History of Present Illness Initial Comments: This patient is an 83-year-old woman who presents to have evaluation for a feeling of chest heaviness and palpitations. The patient states that this had come on after she had eaten. She was at rest at the time. The patient denies corina chest pain though it does feel like her chest is heavy. She has not had diaphoresis, nausea vomiting, dyspnea or syncope. Patient denies history of previous atrial fibrillation. MD Complaint: palpitations Context: occurred during rest Associated Symptoms: anxiety - Related Data Home Medications Medication Instructions Recorded Confirmed Aspirin EC [Ecotrin Low Dose] 81 mg PO HS 04/27/23 02/15/24 Atorvastatin [Lipitor] 20 mg PO HS 04/27/23 02/15/24 Triamterene-Hctz 37.5-25Mg 1 tab PO DAILY 02/15/24 02/15/24 [Maxzide 37.5-25] lisinopriL [Zestril] 10 mg PO HS 02/15/24 02/15/24 Previous Rx's Medication Instructions Recorded Amiodarone [Cordarone] 200 mg PO BID #60 tab 02/15/24 Apixaban [Eliquis] 5 mg PO BID #60 tab 02/15/24 Famotidine [Pepcid] 20 mg PO HS #30 tab 02/15/24 Metoprolol Succinate (ER) [Toprol 50 mg PO DAILY #60 tab 02/15/24 XL] Nitroglycerin Sl Tabs [Nitrostat] 0.4 mg SUBLINGUAL Q5M PRN #25 tab 02/15/24 Allergies Allergy/AdvReac Type Severity Reaction Status Date / Time No Known Allergies Allergy Verified 02/15/24 06:59 Review of Systems ROS Statement: Those systems with pertinent positive or pertinent negative responses have been documented in the HPI. ROS Other: All systems not noted in ROS Statement are negative. Constitutional: Denies: fever, chills Respiratory: Denies: cough, dyspnea, wheezes Cardiovascular: Reports: as per HPI, palpitations. Denies: orthopnea, edema, syncope Gastrointestinal: Denies: abdominal pain, nausea, vomiting Genitourinary: Denies: dysuria, frequency, hematuria Musculoskeletal: Denies: back pain Skin: Denies: rash Neurological: Denies: headache, weakness, numbness Psychiatric: Reports: anxiety Past Medical History Past Medical History: Hyperlipidemia, Hypertension History of Any Multi-Drug Resistant Organisms: None Reported Past Surgical History: Adenoidectomy, Appendectomy, Cholecystectomy, Hysterectomy, Orthopedic Surgery, Tonsillectomy Past Psychological History: No Psychological Hx Reported Smoking Status: Never smoker Past Alcohol Use History: None Reported Past Drug Use History: None Reported General Exam Limitations: no limitations General appearance: alert, in no apparent distress Head exam: Present: atraumatic, normocephalic Eye exam: Present: normal appearance. Absent: scleral icterus, conjunctival injection ENT exam: Present: normal oropharynx Neck exam: Present: normal inspection Respiratory exam: Present: normal lung sounds bilaterally. Absent: respiratory distress, wheezes, rales, rhonchi, stridor, accessory muscle use Cardiovascular Exam: Present: tachycardia, irregular rhythm, normal heart sounds. Absent: systolic murmur, diastolic murmur, rubs, gallop GI/Abdominal exam: Present: soft. Absent: distended, tenderness, guarding, rebound, rigid, mass Extremities exam: Present: normal inspection, normal capillary refill, pedal edema (There is mild edema at the ankles bilaterally). Absent: calf tenderness Back exam: Present: normal inspection. Absent: CVA tenderness (R), CVA tenderness (L) Neurological exam: Present: alert Skin exam: Present: warm, dry, intact, normal color. Absent: rash Course Vital Signs 02/14/24 02/14/24 02/14/24 20:07 21:00 21:03 Temperature 98.2 F Pulse Rate 144 H 163 H Pulse Rate [ 154 H Matchbook Assembler ] Respiratory 20 18 Rate Blood Pressure 87/61 122/79 O2 Sat by Pulse 95 95 Oximetry 02/14/24 02/14/24 02/15/24 22:00 22:46 01:00 Temperature Pulse Rate 111 H 128 H 86 Pulse Rate [ Matchbook Assembler ] Respiratory 18 18 18 Rate Blood Pressure 91/70 88/57 128/64 O2 Sat by Pulse 95 96 97 Oximetry 02/15/24 02/15/24 02/15/24 02:00 04:00 06:08 Temperature Pulse Rate 77 72 75 Pulse Rate [ Matchbook Assembler ] Respiratory 18 18 18 Rate Blood Pressure 137/81 108/51 129/55 O2 Sat by Pulse 95 98 Oximetry 02/15/24 02/15/24 02/15/24 07:58 10:33 12:51 Temperature Pulse Rate 72 84 65 Pulse Rate [ Matchbook Assembler ] Respiratory 18 18 18 Rate Blood Pressure 143/55 122/54 119/54 O2 Sat by Pulse 99 97 97 Oximetry 02/15/24 14:39 Temperature 98.1 F Pulse Rate 73 Pulse Rate [ Matchbook Assembler ] Respiratory 18 Rate Blood Pressure 126/56 O2 Sat by Pulse 97 Oximetry EKG Findings - EKG Results: EKG: interpreted by ERMD EKG shows: atrial fibrillation (Rate 138 bpm) - Dysrhythmias: Supraventricular dysrhythmia: atrial fibrillation - Blocks, [place], Hypertrophy, ST Abn: AV and intraventricular conduction: left bundle branch block (fixed/intermittent, complete/incomplete) QRS axis and voltage: left axis deviation (-30 to -90) Medical Decision Making - Medical Decision Making The patient had chest x-ray which I interpreted as negative for acute infiltrate, pneumothorax, congestive heart failure Was pt. sent in by a medical professional or institution (, PA, KETTLE COORDINATOR, urgent care, hospital, or [facility]...) When possible be specific @ -[No] Did you speak to anyone other than the patient for history (EMS, parent, family, police, friend...)? What history was obtained from this source @ -[No] Did you review nursing and triage notes (agree or disagree)? Why? @ -[I reviewed and agree with nursing and triage notes] Were old charts reviewed (outside hosp., previous admission, EMS record, old EKG, old radiological studies, urgent care reports/EKG's, ch[facility] records)? Report findings @ -[Yes, old charts were reviewed] Differential Diagnosis (chest pain, altered mental status, abdominal pain women, abdominal pain men, vaginal bleeding, weakness, fever, dyspnea, syncope, headache, dizziness, GI bleed, back pain, seizure, CVA, palpatations, mental health, musculoskeletal)? @ -[Differential Palpitations Ventricular arrhythmias, atrial arrhythmias, myocardial infarction, anemia, thyrotoxicosis, electrolyte imbalance, hypokalemia, pulmonary embolism, pulmonary disease, drugs, alcohol, anxiety, stress.... This is not meant to be an all-inclusive list. EKG interpreted by me (3pts min.). @ -[I interpreted as above] X-rays interpreted by me (1pt min.). @ -[I interpreted as above CT interpreted by me (1pt min.). @ -[None done] U/S interpreted by me (1pt. min.). @ -[None done] What testing was considered but not performed or refused? (CT, X-rays, U/S, labs)? Why? @ -[None] What meds were considered but not given or refused? Why? @ -[None] Did you discuss the management of the patient with other professionals (professionals i.e. DrPrasanna, PA, KETTLE COORDINATOR, lab, RT, psych nurse, director of social work, commercial lines account executive, teacher, environmental officer, rn case management)? Give summary @ -[Case discussed with admitting physician and treatment recommendations incorporated Was smoking cessation discussed for >3mins.? @ -[No] Was critical care preformed (if so, how long)? @ -[Yes, 30 minutes Were there social determinants of health that impacted care today? How? (Homelessness, low income, unemployed, alcoholism, drug addiction, transportation, low edu. Level, literacy, decrease access to med. care, long-term, rehab)? @ -[No] Was there de-escalation of care discussed even if they declined (Discuss DNR or withdrawal of care, Hospice)? DNR status @ -[No] What co-morbidities impacted this encounter? (DM, HTN, Smoking, COPD, CAD, Cancer, CVA, ARF, Chemo, Hep., AIDS, mental health diagnosis, sleep apnea, m orbid obesity)? @ -[Hypertension and hyperlipidemia Was patient admitted / discharged? Hospital course, mention meds given and route, prescriptions, significant lab abnormalities, going to OR and other pertinent info. @ -[Patient is an 83-year-old woman who arrives with complaint of palpitations and is found to be in atrial fibrillation with rapid ventricular rate. The patient started on IV Cardizem and given anticoagulation. Patient is admitted to have serial cardiac enzymes, telemetry monitoring, antiarrhythmic treatment and cardiology consultation. Undiagnosed new problem with uncertain prognosis? @ -[No] Drug Therapy requiring intensive monitoring for toxicity (Heparin, Nitro, Insul in, Cardizem)? @ -[IV Cardizem Were any procedures done? @ -[No] Diagnosis/symptom? @ -[Atrial fibrillation with rapid ventricular rate, new onset Acute, or Chronic, or Acute on Chronic? @ -[Acute Uncomplicated (without systemic symptoms) or Complicated (systemic symptoms)? @ -[Uncomplicated Side effects of treatment? @ -[No] Exacerbation, Progression, or Severe Exacerbation? @ -[No] Poses a threat to life or bodily function? How? (Chest pain, [place], HI, pneumonia, PE, COPD, DKA, ARF, appy, cholecystitis, CVA, Diverticulitis, Homicidal, Suicidal, threat to staff... and all critical care pts) @ -[Yes - Lab Data Result diagrams: 02/14/24 20:24 02/14/24 20: Lab Results 02/14/24 02/14/24 02/14/24 Range/Units 20:24 20:24 20:24 WBC 8.8 (3.8-10.6) k/uL RBC 4.74 (3.80-5.40) m/uL Hgb 13.7 (11.4-16.0) gm/dL Hct 41.3 (34.0-46.0) % MCV 87.2 (80.0-100.0) fL MCH 28.9 (25.0-35.0) pg MCHC 33.1 (31.0-37.0) g/dL RDW 13.4 (11.5-15.5) % Plt Count 258 (150-450) k/uL MPV 9.2 Neutrophils % 69 % Lymphocytes % 20 % Monocytes % 5 % Eosinophils % 4 % Basophils % 1 % Neutrophils # 6.0 (1.3-7.7) k/uL Lymphocytes # 1.7 (1.0-4.8) k/uL Monocytes # 0.5 (0-1.0) k/uL Eosinophils # 0.3 (0-0.7) k/uL Basophils # 0.1 (0-0.2) k/uL PT 10.0 (10.0-12.5) sec INR 0.9 (<1.2) APTT 22.7 (22.0-30.0) sec Sodium 140 (137-145) mmol/L Potassium 4.7 (3.5-5.1) mmol/L Chloride 109 H (98-107) mmol/L Carbon Dioxide 21 L (22-30) mmol/L Anion Gap 10 mmol/L BUN 26 H (7-17) mg/dL Creatinine 0.98 (0.52-1.04) mg/dL Est GFR (CKD-EPI)AfAm 61 (>60 ml/min/1.73 sqM) Est GFR (CKD-EPI)NonAf 53 (>60 ml/min/1.73 sqM) Glucose 172 H (74-99) mg/dL Calcium 9.1 (8.4-10.2) mg/dL Magnesium 2.2 (1.6-2.3) mg/dL Total Bilirubin 0.7 (0.2-1.3) mg/dL AST 33 (14-36) U/L ALT 20 (4-34) U/L Alkaline Phosphatase 125 (38-126) U/L Troponin I (0.000-0.034) ng/mL Total Protein 6.7 (6.3-8.2) g/dL Albumin 4.0 (3.5-5.0) g/dL 02/14/24 Range/Units 20:24 WBC (3.8-10.6) k/uL RBC (3.80-5.40) m/uL Hgb (11.4-16.0) gm/dL Hct (34.0-46.0) % MCV (80.0-100.0) fL MCH (25.0-35.0) pg MCHC (31.0-37.0) g/dL RDW (11.5-15.5) % Plt Count (150-450) k/uL MPV Neutrophils % % Lymphocytes % % Monocytes % % Eosinophils % % Basophils % % Neutrophils # (1.3-7.7) k/uL Lymphocytes # (1.0-4.8) k/uL Monocytes # (0-1.0) k/uL Eosinophils # (0-0.7) k/uL Basophils # (0-0.2) k/uL PT (10.0-12.5) sec INR (<1.2) APTT (22.0-30.0) sec Sodium (137-145) mmol/L Potassium (3.5-5.1) mmol/L Chloride (98-107) mmol/L Carbon Dioxide (22-30) mmol/L Anion Gap mmol/L BUN (7-17) mg/dL Creatinine (0.52-1.04) mg/dL Est GFR (CKD-EPI)AfAm (>60 ml/min/1.73 sqM) Est GFR (CKD-EPI)NonAf (>60 ml/min/1.73 sqM) Glucose (74-99) mg/dL Calcium (8.4-10.2) mg/dL Magnesium (1.6-2.3) mg/dL Total Bilirubin (0.2-1.3) mg/dL AST (14-36) U/L ALT (4-34) U/L Alkaline Phosphatase (38-126) U/L Troponin I <0.012 (0.000-0.034) ng/mL Total Protein (6.3-8.2) g/dL Albumin (3.5-5.0) g/dL Disposition Clinical Impression: Atrial fibrillation with rapid ventricular response Disposition: ADMITTED IP TO THIS HOSP Condition: Good Is patient prescribed a controlled substance at d/c from ED?: No
--- NOTE | 2024-02-14 21:22 | XR ---
EXAMINATION TYPE: XR chest 2V DATE OF EXAM: 02/14/2024 9:12 PM CLINICAL INDICATION:Female, 83 years old with history of dysrhythmia; [facility] COMPARISON: Chest radiographs from 09/01/2023 TECHNIQUE: XR chest 2V Frontal and lateral views of the chest. FINDINGS: Lungs/Pleura: There is no evidence of pleural effusion, focal consolidation, or pneumothorax. Pulmonary vascularity: Unremarkable. Heart/mediastinum: Cardiomediastinal silhouette is unremarkable. Musculoskeletal: No acute osseous pathology. Other findings: Cholecystectomy clips identified in the upper abdomen. IMPRESSION: No acute cardiopulmonary disease/process.
[2024-02-14] MEDS: SODIUM CHLORIDE 0.9% 500 ML 500 ML IV STA ×2 (21:28→22:55)
[2024-02-14 21:30] LABS: African American GFR (CKD) 61 (>60 ml/min/1.73 sqM); Anion Gap 10 mmol/L; Calcium 9.1 mg/dL (8.4-10.2); Carbon Dioxide 21 mmol/L (22-30); Chloride 109 mmol/L (98-107); Glucose 172 mg/dL (74-99); Non-African American GFR(CKD) 53 (>60 ml/min/1.73 sqM); Sodium 140 mmol/L (137-145)
[2024-02-14] MEDS: DILTIAZEM DRIP BOLUS FROM BAG 1 MG SOLN IV ONE (21:31)
[2024-02-14] MEDS: DILTIAZEM 125 MG in SODIUM CHLORIDE 0.9% 100 ML IV SCH (21:32)
[2024-02-14 21:35] LABS: AST 33 U/L (14-36); Alkaline Phosphatase 125 U/L (38-126); Magnesium 2.2 mg/dL (1.6-2.3); Potassium 4.7 mmol/L (3.5-5.1); Total Protein 6.7 g/dL (6.3-8.2)
[2024-02-14 21:36] VITALS: RESP 18
[2024-02-14] MEDS ORDERED: NITROGLYCERIN SL TABS 0.4 MG TAB SUBLINGUAL PRN (22:53)
[2024-02-14] MEDS: SODIUM CHLORIDE 0.9% 1,000 ML IV STA (22:56)
[2024-02-14] MEDS ORDERED: ALBUTEROL NEBULIZED 2.5 MG/3 ML INHALATION PRN (23:00)
[2024-02-15] MEDS: SODIUM CHLORIDE 0.9% 500 ML 500 ML IV STA (00:54)
[2024-02-15] MEDS: ENOXAPARIN 80 MG/0.8 ML SYRINGE SQ SCH (01:00)
[2024-02-15] MEDS: DILTIAZEM ORAL 30 MG TAB PO STA (01:25)
[2024-02-15] MEDS ORDERED: ASPIRIN 325 MG TAB PO SCH (09:00)
[2024-02-15] MEDS ORDERED: TRIAMTERENE-HCTZ 37.5-25MG 1 EACH CAP PO SCH (09:00)
[2024-02-15 09:14] LABS: Chol/HDL Ratio 3.39 Ratio; LDL Cholesterol,Calculated 78.6 mg/dL (0.0-131.0)
--- NOTE | 2024-02-15 10:35 | P.CRDCN ---
History of Present Illness History of present illness: HISTORY OF PRESENT ILLNESS: This is a 83-year-old female with a past medical history significant for hypertension and hyperlipidemia. Patient does not follow with a engineer technical staff. We have been asked to see the patient in consultation for new onset atrial fibrillation. Patient examined at the bedside in the emergency room. Patient presented to the hospital for chief complaint of palpitations. Patient was found to be in A-fib with RVR. Patient denies a history of atrial fibrillation. She was started on IV Cardizem and subsequently converted to sinus mechanism. She remains in sinus mechanism at the time of examination. She currently denies any chest pain or pressure. She denies any shortness of breath. Vital signs are stable. Patient's family is at the bedside and states that she gets injections for glaucoma every 4 to 8 weeks. She is scheduled to have an injection on Thursday. DIAGNOSTICS: - EKG reveals atrial fibrillation with RVR. Left bundle branch block. - Chest xray negative for acute process. - Laboratory data: WBC 8.8. Hemoglobin 13.7. Platelet count 258. Sodium 140. Potassium 4.7. BUN 26. Creatinine 0.98. Magnesium 2.2. Troponin negative x 2. - Current home cardiac medications include aspirin 81 mg daily, atorvastatin 20 mg at night, atenolol 25 mg at night, lisinopril 10 mg at night, and Maxide 37.5-25 mg daily. - Most recent echocardiogram obtained in September 2023 revealed ejection fraction 55 to 60%, moderate LVH, mild to moderate MR, mild - Patient underwent stress echo in March 2019 which was negative for ischemia REVIEW OF SYSTEMS: At the time of my exam: CONSTITUTIONAL: Denies fever or chills. HEENT: Denies blurred vision, vision changes, or eye pain. Denies hemoptysis CARDIOVASCULAR: Denies chest pain. Denies orthopnea. Denies PND. Denies palpitations RESPIRATORY: Denies shortness of breath. GASTROINTESTINAL: Denies abdominal pain. Denies nausea or vomiting. HEMATOLOGIC: Denies bleeding disorders. GENITOURINARY: Denies any blood in urine. SKIN: Denies pruitis. Denies rash. PHYSICAL EXAM: VITAL SIGNS: Reviewed. GENERAL: Well-developed in no acute distress. HEENT: Head is normocephalic. Pupils are equal, round. Sclerae anicteric. Mucous membranes of the mouth are moist. Neck supple. No JVD or thyromegaly LUNGS: Respirations even and unlabored. Lungs essentially clear to auscultation bilaterally. HEART: Regular rate and rhythm. S1 and S2 heard. ABDOMEN: Soft. Nondistended. Nontender. EXTREMITIES: Normal range of motion. No clubbing or cyanosis. Peripheral pulses intact. No lower extremity edema NEUROLOGIC: Awake and alert. Oriented x 3. ASSESSMENT: Palpitations New onset paroxysmal atrial fibrillation with RVR Hypertension Hyperlipidemia Glaucoma PLAN: Obtain 2D echo to assess cardiac structure and function Begin Eliquis 5 mg twice a day Begin metoprolol succinate 50 mg daily Add amiodarone 200 mg twice a day for 2 weeks. After 2 weeks decrease to 200 mg daily Check TSH Patient's family is at the bedside and states that she gets injections for glaucoma every 4 to 8 weeks. She is scheduled to have an injection on Thursday. Instructed patient's family to speak with the eye doctor to see if it is possible to postpone injection. If unable to postpone her injection, recommend holding Eliquis 48 hours prior to procedure Patient may be discharged home this afternoon from a cardiac standpoint She is to follow-up postdischarge in the office with Dr. Bourgeois Nurse practitioner note has been reviewed by physician. Signing provider agrees with the documented findings, assessment, and plan of care documented by [employer] as a scribe. Past Medical History Past Medical History: Hyperlipidemia, Hypertension History of Any Multi-Drug Resistant Organisms: None Reported Past Surgical History: Adenoidectomy, Appendectomy, Cholecystectomy, Hysterectomy, Orthopedic Surgery, Tonsillectomy Past Psychological History: No Psychological Hx Reported Smoking Status: Never smoker Past Alcohol Use History: None Reported Past Drug Use History: None Reported Medications and Allergies Home Medications Medication Instructions Recorded Confirmed Type atenoloL [Tenormin] 25 mg PO HS 01/31/16 02/15/24 History Aspirin EC [Ecotrin Low Dose] 81 mg PO HS 04/27/23 02/15/24 History Atorvastatin [Lipitor] 20 mg PO HS 04/27/23 02/15/24 History Triamterene-Hctz 37.5-25Mg 1 tab PO DAILY 02/15/24 02/15/24 History [Maxzide 37.5-25] lisinopriL [Zestril] 10 mg PO HS 02/15/24 02/15/24 History Allergies Allergy/AdvReac Type Severity Reaction Status Date / Time No Known Allergies Allergy Verified 02/15/24 06:59 Physical Exam Vitals: Vital Signs Temp Pulse Pulse Resp BP Pulse Ox 02/15/24 07:58 72 18 143/55 99 02/15/24 06:08 75 18 129/55 98 02/15/24 04:00 72 18 108/51 95 02/15/24 02:00 77 18 137/81 02/15/24 01:00 86 18 128/64 97 02/14/24 22:46 128 H 18 88/57 96 02/14/24 22:00 111 H 18 91/70 95 02/14/24 21:03 154 H 02/14/24 21:00 163 H 18 122/79 95 02/14/24 20:07 98.2 F 144 H 20 87/61 95 Intake and Output 02/14/24 02/15/24 02/15/24 22:59 06:59 14:59 Intake Total 19.417 Balance 19.417 Intake: Intake, IV Titration 19.417 Amount Diltiazem 125 mg In 19.417 Sodium Chloride 0.9% 100 ml @ 5 MG/HR 5 mls/hr IV .Q24H [facility] Rx#:[id number] Other: Weight 86.183 kg Results 02/14/24 20:24 02/14/24 20:24 Cardiac Enzymes 02/14/24 02/14/24 02/15/24 Range/Units 20:24 20:24 02:42 AST 33 (14-36) U/L Troponin I <0.012 0.024 (0.000-0.034) ng/mL Coagulation 02/14/24 Range/Units 20:24 PT 10.0 (10.0-12.5) sec APTT 22.7 (22.0-30.0) sec CBC 02/14/24 Range/Units 20:24 WBC 8.8 (3.8-10.6) k/uL RBC 4.74 (3.80-5.40) m/uL Hgb 13.7 (11.4-16.0) gm/dL Hct 41.3 (34.0-46.0) % Plt Count 258 (150-450) k/uL Comprehensive Metabolic Panel 02/14/24 Range/Units 20:24 Sodium 140 (137-145) mmol/L Potassium 4.7 (3.5-5.1) mmol/L Chloride 109 H (98-107) mmol/L Carbon Dioxide 21 L (22-30) mmol/L BUN 26 H (7-17) mg/dL Creatinine 0.98 (0.52-1.04) mg/dL Glucose 172 H (74-99) mg/dL Calcium 9.1 (8.4-10.2) mg/dL AST 33 (14-36) U/L ALT 20 (4-34) U/L Alkaline Phosphatase 125 (38-126) U/L Total Protein 6.7 (6.3-8.2) g/dL Albumin 4.0 (3.5-5.0) g/dL Current Medications Generic Name Dose Route Start Last Admin Trade Name Freq PRN Reason Stop Dose Admin Albuterol Sulfate 2.5 mg 02/14/24 23:00 Albuterol Nebulized 2.5 Mg/3 Ml INHALATION RT-Q4H PRN Shortness Of Breath Aspirin 81 mg 02/15/24 21:00 Aspirin 81 Mg PO HS MAGALY Atenolol 25 mg 02/15/24 21:00 Atenolol 25 Mg Tab PO HS MAGALY Atorvastatin Calcium 20 mg 02/15/24 21:00 Atorvastatin 20 Mg Tab PO HS MAGALY Enoxaparin Sodium 80 mg 02/14/24 23:00 02/15/24 01:29 Enoxaparin 80 Mg/0.8 Ml Syringe SQ 80 mg Q12H MAGALY Administration Famotidine 20 mg 02/15/24 21:00 Famotidine 20 Mg Tab PO HS MAGALY Diltiazem HCl 125 mg/ Sodium 125 mls @ 5 mls/hr 02/14/24 21:30 02/15/24 01:25 Chloride IV 0 mg/hr .Q24H [facility] 0 mls/hr Infusion 5 MG/HR Sodium Chloride 1,000 mls @ 75 mls/hr 02/14/24 22:52 02/14/24 22:56 Saline 0.9% IV 02/15/24 12:11 75 mls/hr .[id number] STA Administration Lisinopril 10 mg 02/15/24 21:00 Lisinopril 10 Mg Tab PO HS MAGALY Nitroglycerin 0.4 mg 02/14/24 22:53 Nitroglycerin Sl Tabs 0.4 Mg Tab SUBLINGUAL Q5M PRN Chest Pain Triamterene/Hydrochlorothiazide 1 each 02/15/24 09:00 Triamterene-Hctz 37.5-25mg 1 Each Cap PO DAILY [facility] Intake and Output 02/14/24 02/15/24 02/15/24 22:59 06:59 14:59 Intake Total 19.417 Balance 19.417 Intake: Intake, IV Titration 19.417 Amount Diltiazem 125 mg In 19.417 Sodium Chloride 0.9% 100 ml @ 5 MG/HR 5 mls/hr IV .Q24H [facility] Rx#:[id number] Other: Weight 86.183 kg 02/14/24 20:24 02/14/24 20:24
[2024-02-15] MEDS: METOPROLOL SUCCINATE (ER) 50 MG TAB.ER.24H PO SCH (10:38)
[2024-02-15] MEDS: APIXABAN 5 MG TAB PO SCH (10:38)
[2024-02-15] MEDS: TRIAMTERENE-HCTZ 37.5-25MG 1 EACH CAP PO SCH (10:39)
[2024-02-15] MEDS: AMIODARONE 200 MG TAB PO SCH (10:39)
--- NOTE | 2024-02-15 12:51 | CA ---
Transthoracic Echo Report Name: Sherita Seay Age: 83 Gender: F : 1940 Exam Date: 02/15/2024 09:10 Exam Location: [facility] Ht (in): 67 Wt (lb): 190 Ordering Physician: Yung Chavez MD Attending/Referring Phys: Safety Sealer Madelin Washington RDCS Procedure CPT: Indications: new atrial fibrillation Cardiac Hx: Technical Quality: Fair Contrast 1: Total Dose (mL): Contrast 2: Total Dose (mL): MEASUREMENTS (Male / Female) Normal Values 2D ECHO LV Diastolic Diameter PLAX 3.3 cm 4.2 - 5.9 / 3.9 - 5.3 cm LV Systolic Diameter PLAX 2.5 cm IVS Diastolic Thickness 1.3 cm 0.6 - 1.0 / 0.6 - 0.9 cm LVPW Diastolic Thickness 1.3 cm 0.6 - 1.0 / 0.6 - 0.9 cm LV Relative Wall Thickness 0.8 RV Internal Dim ED PLAX 2.8 cm LA Systolic Diameter LX 3.5 cm 3.0 - 4.0 / 2.7 - 3.8 cm LV Diastolic Volume MOD 4C 109.4 cm??? LV Systolic Volume MOD 4C 52.9 cm??? LV Ejection Fraction MOD 4C 51.6 % LV Cardiac Index MOD 4C 2045.4 cm???/min???m??? LV Diastolic Length 4C 7.9 cm LV Systolic Length 4C 6.3 cm LV Diastolic Volume MOD 2C 61.4 cm??? LV Systolic Volume MOD 2C 31.9 cm??? LV Ejection Fraction MOD 2C 48.0 % LV Cardiac Index MOD 2C 1068.7 cm???/min???m??? LV Diastolic Length 2C 7.2 cm LV Systolic Length 2C 6.1 cm LA Volume 68.1 cm??? 18 - 58 / 22 - 52 cm??? LA Volume Index 33.3 cm???/m??? 16 - 28 cm???/m??? M-MODE Aortic Root Diameter MM 3.4 cm AV Cusp Separation MM 1.7 cm DOPPLER AV Peak Velocity 149.1 cm/s AV Peak Gradient 8.9 mmHg MV Area PHT 4.0 cm??? Mitral E Point Velocity 107.9 cm/s Mitral A Point Velocity 91.2 cm/s Mitral E to A Ratio 1.2 MV Deceleration Time 188.4 ms FINDINGS Left Ventricle Left ventricular ejection fraction is estimated at 55-60 %. Small left ventricular cavity. Normal left ventricular systolic function with no obvious regional wall motion abnormalities. Mildly increased left ventricular wall thickness. Right Ventricle Normal right ventricular size and function. Unable to estimate the right ventricular systolic pressure. Right Atrium Right atrium not well visualized. Left Atrium Mildly increased left atrial volume. Mitral Valve Mitral valve thickened. Mitral annular calcification. No mitral stenosis, or prolapse.mild mitral regurgitation. Aortic Valve Trileaflet aortic valve. No aortic valve stenosis or regurgitation. Tricuspid Valve Structurally normal tricuspid valve. No tricuspid stenosis, or prolapse.trace to mild tricuspid regurgitation. Pulmonic Valve Pulmonic valve not well visualized. No pulmonic regurgitation. Pericardium No pericardial effusion. Aorta Normal size aortic root and proximal ascending aorta. CONCLUSIONS 1. Normal left ventricular size and systolic function 2. Mild mitral and trace to mild tricuspid regurgitation Previewed by: Dr. Anish Witt MD (Electronically Signed) Final Date: 15 Feb 2024 12:50
[2024-02-15 15:03] VITALS: BP 126/56; PULSE 73; TEMP 98.1
[2024-02-15] MEDS ORDERED: LISINOPRIL-HCTZ 10-12.5 MG 1 EACH TAB PO SCH (21:00)
[2024-02-15] MEDS ORDERED: atenoloL 25 MG TAB PO SCH (21:00)
[2024-02-15] MEDS ORDERED: ATORVASTATIN 20 MG TAB PO SCH (21:00)
[2024-02-15] MEDS ORDERED: FAMOTIDINE 20 MG TAB PO SCH (21:00)
[2024-02-15] MEDS ORDERED: lisinopriL 10 MG TAB PO SCH (21:00)
[2024-02-15] MEDS ORDERED: ASPIRIN 81 MG PO SCH (21:00)
--- NOTE | 2024-02-15 21:12 | P.HPIM ---
History of Present Illness H&P Date: 02/15/24 HISTORY OF PRESENT ILLNESS: 83-year-old one of my office patient with active medical history of hypertension, hyperlipidemia, osteoarthritis, mild arrhythmia, chronic edema, wh o was admitted to the hospital April last year because of 40% pneumothorax the left side following a fall. Ended up having it treated and done well she does have a history of reactive airway as well otherwise stable. She presented to the emergency department with chief complaint of palpitation with significant chest pain and heaviness when she had her meal and developed to have quite the palpitation at the time with chest tightness denies any nausea or vomiting no diarrhea or constipation no GI symptoms she denies any previous history of A-fib she is known to have history of palpitation and skipped beats mostly. She ended up coming to the emergency department late last night was seen and evaluated her EKG showed A-fib with rapid ventricular response with pulse rate running 140 beats per minutes. Her laboratory value shows normal CBC PT/INR chemistry with bun 26 creatinine 0.98 her troponin was negative normal liver function test. She was started on Cardizem drip after 30 mg was giving she was on 5 mg an hour titrated up to 10 mg an hour which The pulse under better control at the point and repeat EKG showed ectopic atrial rhythm with left bundle branch block with no A-fib. Repeat EKG in the morning continue to be in sinus rhythm with first- degree AV block with occasional PVCs. Patient be seen and evaluated by cardiology echocardiogram will be done CK with troponin x 3 depending on results we will decide on further management if required to have further anticoagulation can probably start patient on amiodarone and larger dose of metoprolol. She might require further intervention and testing if not controlled. REVIEW OF SYSTEMS: CONSTITUTIONAL: Well-developed no acute respiratory distress. EYES: No icterus sclerae, no conjunctivitis. EARS, NOSE, MOUTH, THROAT, and FACE: No sore throat, lymphadenopathy, carotid bruits or deformity. RESPIRATORY: Positive shortness of breath no cough or wheezes. CARDIOVASCULAR: Positive PND orthopnea palpitation and slightly chest tightness none angina base. GASTROINTESTINAL: No Abd pain, Nausea or vomiting, no Diarrhea or constipation, No GI Bleed, no distention or masses. GENITOURINARY: Negative for Hematuria or UTI, no kidney stones. INTEGUMENT/BREAST: Negative for any muscular injury with mild osteoarthritis.. HEMATOLOGIC/LYMPHATIC: Negative for bleed or purpura. MUSCULOSKELTAL: Negative for Myalgia or arthralgia. NEURLOGICAL: No LOC, Sz or syncope, blurred vision dizziness or abnormality.. BEHAVIORAL/PSYCH: Negative. ENDOCRINE: Negative. PHYSICAL EXAMINATION: General Appearance: Alert, cooperative, no distress, appears stated age. Neck HEENT: Supple, no lymphadenopathy, no thyroid enlargement, no carotid bruits. Lungs: Clear to auscultation without crackles or wheezes no rhonchi, no deformity. Chest Wall: Decreased expansion with deep inspiration no tenderness and no deformity was found on exam, no costochondral pain or discomfort. Heart: Irregular rate and rhythm, S1, S2 normal, positive systolic murmur no gallop. Back: Symmetric, no curvature, ROM normal, no CVA tenderness. Abdomen: Soft, non-tender, bowel sounds active all four quadrants, no masses, no organomegaly. Extremities: Extremities normal, atraumatic, no cyanosis or edema. Pulses: 2+ and symmetric. Skin: Skin color, texture, tugor normal, no rashes or lesions. Neurologic: Alert oriented x3 cranial nerves II through XII intact, no motor deficit, no abnormal balance or gait. ASSESSMENT AND PLAN: _New onset of A-fib with RVR: Patient was admitted to the [facility] drip will titrate Metoprolol succinate up to 50 mg daily if needed can start amiodarone. Patient was started on anticoagulation with Eliquis 5 mg twice a day. _Chest pain: Atypical and brought by significant A-fib with current symptoms CK troponin x 3 be done echocardiogram cardiology consultation further testing including stress test will be probably due at some point in a few weeks. If continued having any recurrent chest pain or CKs positive further management be done. _Shortness of breath: This is caused by the severity of the A-fib no sign of heart failure at this point treat underlying disease probably the shortness of breath will be better. _Hypertension: Remain on lisinopril 10 mg titrate dose higher if needed still on Dyazide as well. _Hyperlipidemia: Continue atorvastatin 20 mg a day lipid panel be done. _DVT prophylaxis: Continue patient on Pepcid 20 mg a day. GI prophylaxis: She will be on anticoagulation. CODE STATUS: Full code. Admit patient to observation for 1-2 night stay. Past Medical History Past Medical History: Hyperlipidemia, Hypertension History of Any Multi-Drug Resistant Organisms: None Reported Past Surgical History: Adenoidectomy, Appendectomy, Cholecystectomy, Hysterectomy, Orthopedic Surgery, Tonsillectomy Past Psychological History: No Psychological Hx Reported Smoking Status: Never smoker Past Alcohol Use History: None Reported Past Drug Use History: None Reported Medications and Allergies Home Medications Medication Instructions Recorded Confirmed Type Aspirin EC [Ecotrin Low Dose] 81 mg PO HS 04/27/23 02/15/24 History Atorvastatin [Lipitor] 20 mg PO HS 04/27/23 02/15/24 History Amiodarone [Cordarone] 200 mg PO BID #60 tab 02/15/24 Rx Apixaban [Eliquis] 5 mg PO BID #60 tab 02/15/24 Rx Famotidine [Pepcid] 20 mg PO HS #30 tab 02/15/24 Rx Metoprolol Succinate (ER) [Toprol 50 mg PO DAILY #60 tab 02/15/24 Rx XL] Nitroglycerin Sl Tabs [Nitrostat] 0.4 mg SUBLINGUAL Q5M PRN #25 tab 02/15/24 Rx Triamterene-Hctz 37.5-25Mg 1 tab PO DAILY 02/15/24 02/15/24 History [Maxzide 37.5-25] lisinopriL [Zestril] 10 mg PO HS 02/15/24 02/15/24 History Allergies Allergy/AdvReac Type Severity Reaction Status Date / Time No Known Allergies Allergy Verified 02/15/24 06:59 Physical Exam Vitals: Vital Signs Temp Pulse Pulse Resp BP Pulse Ox 02/15/24 06:08 75 18 129/55 98 02/15/24 04:00 72 18 108/51 95 02/15/24 02:00 77 18 137/81 02/15/24 01:00 86 18 128/64 97 02/14/24 22:46 128 H 18 88/57 96 02/14/24 22:00 111 H 18 91/70 95 02/14/24 21:03 154 H 02/14/24 21:00 163 H 18 122/79 95 02/14/24 20:07 98.2 F 144 H 20 87/61 95 Intake and Output 02/14/24 02/14/24 02/15/24 14:59 22:59 06:59 Intake Total 19.417 Balance 19.417 Intake: Intake, IV Titration .417 Amount Diltiazem 125 mg In 19.417 Sodium Chloride 0.9% 100 ml @ 5 MG/HR 5 mls/hr IV .Q24H [facility] Rx#:[id number] Other: Weight 86.183 kg Results CBC & Chem 7: 02/14/24 20:24 02/14/24 20:24 Labs: Abnormal Lab Results - Last 24 Hours (Table) 02/14/24 Range/Units 20:24 Chloride 109 H (98-107) mmol/L Carbon Dioxide 21 L (22-30) mmol/L BUN 26 H (7-17) mg/dL Glucose 172 H (74-99) mg/dL
--- NOTE | 2024-02-15 21:13 | P.DS ---
Providers Date of admission: 02/14/24 22:53 Attending physician: Magdi Buckley Consults: 02/14/24 22:53 Consult Physician Routine Consulting Provider: Jairo Spaulding Consult Reason/Comments: New onset atrial fibrillation, rapid ventricular rate Do you want consulting provider notified?: Yes Primary care physician: Magdi Buckley [place] [facility] Course: HISTORY OF PRESENT ILLNESS: 83-year-old one of my office patient with active medical history of hypertension, hyperlipidemia, osteoarthritis, mild arrhythmia, chronic edema, who was admitted to the hospital April last year because of 40% pneumothorax the left side following a fall. Ended up having it treated and done well she does have a history of reactive airway as well otherwise stable. She presented to the emergency department with chief complaint of palpitation with significant chest pain and heaviness when she had her meal and developed to have quite the palpitation at the time with chest tightness denies any nausea or vomiting no diarrhea or constipation no GI symptoms she denies any previous history of A-fib she is known to have history of palpitation and skipped beats mostly. She ended up coming to the emergency department late last night was seen and evaluated her EKG showed A-fib with rapid ventricular response with pulse rate running 140 beats per minutes. Her laboratory value shows normal CBC PT/INR chemistry with bun 26 creatinine 0.98 her troponin was negative normal liver function test. She was started on Cardizem drip after 30 mg was giving she was on 5 mg an hour titrated up to 10 mg an hour which The pulse under better control at the point and repeat EKG showed ectopic atrial rhythm with left bundle branch block with no A-fib. Repeat EKG in the morning continue to be in sinus rhythm with first- degree AV block with occasional PVCs. Patient be seen and evaluated by cardiology echocardiogram will be done CK with troponin x 3 depending on results we will decide on further management if required to have further anticoagulation can probably start patient on amiodarone and larger dose of metoprolol. She might require further intervention and testing if not controlled. REVIEW OF SYSTEMS: CONSTITUTIONAL: Well-developed no acute respiratory distress. EYES: No icterus sclerae, no conjunctivitis. EARS, NOSE, MOUTH, THROAT, and FACE: No sore throat, lymphadenopathy, carotid bruits or deformity. RESPIRATORY: Positive shortness of breath no cough or wheezes. CARDIOVASCULAR: Positive PND orthopnea palpitation and slightly chest tightness none angina base. GASTROINTESTINAL: No Abd pain, Nausea or vomiting, no Diarrhea or constipation, No GI Bleed, no distention or masses. GENITOURINARY: Negative for Hematuria or UTI, no kidney stones. INTEGUMENT/BREAST: Negative for any muscular injury with mild osteoarthritis.. HEMATOLOGIC/LYMPHATIC: Negative for bleed or purpura. MUSCULOSKELTAL: Negative for Myalgia or arthralgia. NEURLOGICAL: No LOC, Sz or syncope, blurred vision dizziness or abnormality.. BEHAVIORAL/PSYCH: Negative. ENDOCRINE: Negative. PHYSICAL EXAMINATION: General Appearance: Alert, cooperative, no distress, appears stated age. Neck HEENT: Supple, no lymphadenopathy, no thyroid enlargement, no carotid bruits. Lungs: Clear to auscultation without crackles or wheezes no rhonchi, no deformity. Chest Wall: Decreased expansion with deep inspiration no tenderness and no deformity was found on exam, no costochondral pain or discomfort. Heart: Irregular rate and rhythm, S1, S2 normal, positive systolic murmur no gallop. Back: Symmetric, no curvature, ROM normal, no CVA tenderness. Abdomen: Soft, non-tender, bowel sounds active all four quadrants, no masses, no organomegaly. Extremities: Extremities normal, atraumatic, no cyanosis or edema. Pulses: 2+ and symmetric. Skin: Skin color, texture, tugor normal, no rashes or lesions. Neurologic: Alert oriented x3 cranial nerves II through XII intact, no motor deficit, no abnormal balance or gait. ASSESSMENT AND PLAN: _New onset of A-fib with RVR: Patient was admitted to the [facility] drip will titrate Metoprolol succinate up to 50 mg daily if needed can start amiodarone. Patient was started on anticoagulation with Eliquis 5 mg twice a day. _Chest pain: Atypical and brought by significant A-fib with current symptoms CK troponin x 3 be done echocardiogram cardiology consultation further testing including stress test will be probably due at some point in a few weeks. If continued having any recurrent chest pain or CKs positive further management be done. _Shortness of breath: This is caused by the severity of the A-fib no sign of heart failure at this point treat underlying disease probably the shortness of breath will be better. _Hypertension: Remain on lisinopril 10 mg titrate dose higher if needed still on Dyazide as well. _Hyperlipidemia: Continue atorvastatin 20 mg a day lipid panel be done. _DVT prophylaxis: Continue patient on Pepcid 20 mg a day. GI prophylaxis: She will be on anticoagulation. Hospital course: Patient was admitted to the hospital with A-fib with RVR and developed to have chest tightness and pain. CK troponin x 3 were negative. Patient was started on Cardizem drip after bolus of 30 mg 5 mg an hour then titrate up to 10 mg an hour. Patient was seen cardiology decided the best action plan is to start amiodarone 200 mg twice a day with metoprolol succinate up to 50 mg a day. Will change medication pulse rate becomes lower and she has done very well. Starting anticoagulation patient especially with amiodarone and Eliquis will be seen soon in follow-up quick blood test for thyroid blood count and chemistry. Lipid panel done, Which shows total cholesterol of 143 with LDL of 78 HDL of 44. Thyroid test was negative. Patient was stable to be discharged home per cardiology recommendation follow-up as an outpatient in the next few days and follow-up with cardiology soon she require probably further testing including stress testing next few weeks. Time spent on patient discharge was over 33 minutes. Patient Condition at Discharge: Good Plan - Discharge Summary New Discharge Prescriptions: New Nitroglycerin Sl Tabs [Nitrostat] 0.4 mg SUBLINGUAL Q5M PRN #25 tab PRN Reason: Chest Pain Amiodarone [Cordarone] 200 mg PO BID #60 tab Apixaban [Eliquis] 5 mg PO BID #60 tab Famotidine [Pepcid] 20 mg PO HS #30 tab Metoprolol Succinate (ER) [Toprol XL] 50 mg PO DAILY #60 tab Continue Aspirin EC [Ecotrin Low Dose] 81 mg PO HS Atorvastatin [Lipitor] 20 mg PO HS lisinopriL [Zestril] 10 mg PO HS Triamterene-Hctz 37.5-25Mg [Maxzide 37.5-25] 1 tab PO DAILY Discontinued atenoloL [Tenormin] 25 mg PO HS Discharge Medication List Aspirin EC [Ecotrin Low Dose] 81 mg PO HS 04/27/23 [History] Atorvastatin [Lipitor] 20 mg PO HS 04/27/23 [History] Amiodarone [Cordarone] 200 mg PO BID #60 tab 02/15/24 [Rx] Apixaban [Eliquis] 5 mg PO BID #60 tab 02/15/24 [Rx] Famotidine [Pepcid] 20 mg PO HS #30 tab 02/15/24 [Rx] Metoprolol Succinate (ER) [Toprol XL] 50 mg PO DAILY #60 tab 02/15/24 [Rx] Nitroglycerin Sl Tabs [Nitrostat] 0.4 mg SUBLINGUAL Q5M PRN #25 tab 02/15/24 [Rx] Triamterene-Hctz 37.5-25Mg [Maxzide 37.5-25] 1 tab PO DAILY 02/15/24 [History] lisinopriL [Zestril] 10 mg PO HS 02/15/24 [History] Follow up Appointment(s)/Referral(s): Paco Bourgeois MD [STAFF PHYSICIAN] - 1 Week Magdi Buckley MD [Primary Care Provider] - 1-2 days Activity/Diet/Wound Care/Special Instructions: Patient's family to call eye doctor. From a cardiology standpoint, recommend postponing eye injection. If unable to postpone injection, recommend holding Eliquis for 48 hours prior to procedure Continue amiodarone 200 mg twice a day for 2 weeks. After 2 weeks, decrease dose to 200 mg daily Discharge Disposition: HOME SELF-CARE
== END 2024-02-15 14:43 | disposition home or self-care (01) | DRG 310 ==
LOC: EC 20:03 → 3SCARD 22:53
PROVIDERS: ADMIT Internal Medicine Geriatric Medicine; ATTEND Internal Medicine Geriatric Medicine
DX: I48.0 Paroxysmal atrial fibrillation (principal); E78.5 Hyperlipidemia, unspecified; F41.9 Anxiety disorder, unspecified; H40.9 Unspecified glaucoma; R07.89 Other chest pain; I08.1 Rheumatic disorders of both mitral and tricuspid valves; R00.2 Palpitations; I44.7 Left bundle-branch block, unspecified; I44.30 Unspecified atrioventricular block; I10 Essential (primary) hypertension; Z79.01 Long term (current) use of anticoagulants; Z79.899 Other long term (current) drug therapy; Z90.710 Acquired absence of both cervix and uterus; Z91.81 History of falling; Z90.49 Acquired absence of other specified parts of digestive tract
CPT/HCPCS: 36415; 71046; 80053; 80061; 83735; 84443; 84484; 85025; 85610; 85730; 93005; 93306; 96365; 96366; 96372; 99291